=== PATIENT | female | born 1955 | race Caucasian/White ===

== ENCOUNTER 2023-05-21 08:43 | Outpatient (OUT) | payer MEDICARE, SELFPAY ==
--- NOTE | 2023-05-21 08:51 | XR_ITS ---
[address] [address] Patient Name: ALETA CA MRN: [id number] date: 1955 Sex: F Assigned Patient Location: [facility] Current Patient Location: [facility] Accession/Order Number: [id number] Exam Date: 05/21/2023 09:00 Report Date: 05/21/2023 10:50 At the request of: SADIE MURCIA Procedure: XR DEXA axial skeleton EXAMINATION: XR DEXA axial skeleton, 05/21/2023 9:00 AM EST HISTORY: Screening For Osteoporosis Z13.820 COMPARISON: 2017, 2015, 2009 TECHNIQUE: Dual-energy X-ray absorptiometry (DEXA) bone density study performed for the axial skeleton. HISTORY: Screening For Osteoporosis Z13.820 FINDINGS: Bone mineral density AP spine L1-L4 measures 1.258 g/sq cm. T score 0.6. WHO classification: Normal. Lowest bone mineral density is in the right femoral trochanter measuring 0.494 g/sq cm. T score -3.1. WHO classification: Osteoporosis XR/XR DEXA axial skeleton IMPRESSION: Osteoporosis. High fracture risk Electronically authenticated by: JOSSELINE OQUENDO Date: 05/21/2023 10:50
== END 2023-05-21 08:44 | disposition home or self-care (01) ==
LOC: RAD 08:43
PROVIDERS: PCP Family Medicine; Visit Provider Family Medicine
DX: N95.1 Menopausal and female climacteric states (principal); Z13.820 Encounter for screening for osteoporosis; E28.39 Other primary ovarian failure; E55.9 Vitamin D deficiency, unspecified; M81.0 Age-related osteoporosis without current pathological fracture
CPT/HCPCS: 77080

== ENCOUNTER 2023-06-20 11:31 | Outpatient (OUT) | payer MEDICARE, SELFPAY | END 2023-06-20 11:32 | disposition home or self-care (01) | LOC: PST 11:31 | PROVIDERS: PCP Family Medicine; Visit Provider Ophthalmology | DX: Z01.818 Encounter for other preprocedural examination (principal); H25.812 Combined forms of age-related cataract, left eye ==

== ENCOUNTER 2023-06-21 07:31 | Day surgery (SDC) | payer MEDICARE, SELFPAY ==
--- NOTE | 2023-06-20 | HP_ITS ---
Date: 06/20/2023 HISTORY: The patient is a 67-year-old white female with complaints of declining vision out of her left eye. The onset of this has been gradual and constant in nature over the last two years. She states having difficulty with watching television and seeing the scrolling at the bottom of the screen, as well as road signs at a distance. She also states having difficulty on the computer, as well as reading. PAST OCULAR HISTORY: 1. Amblyopia in the left eye. 2. Cataract left eye. 3. Status post cataract extraction with intraocular lens placed for the right eye in 2016. PAST MEDICAL HISTORY: Hypertension, multiple sclerosis. SOCIAL HISTORY: Denies tobacco, alcohol or recreational drug abuse. SYSTEMIC MEDICATIONS: Calciferol, baclofen, Singulair, spironolactone, metoprolol. ALLERGIES TO MEDICATIONS: Denies. REVIEW OF SYSTEMS: No pertinent positives. PHYSICAL EXAM: GENERAL: In general, she is awake, alert and oriented x3, well developed, well nourished, in no acute distress. HEART: Regular rate and rhythm. LUNGS: Clear bilaterally. ABDOMEN: Soft, non-tender, non-distended. EXTREMITIES: No pitting edema. OPHTHALMIC EXAM: Revealed a visual acuity of 20/20 -1 in the right and 20/70 in the left that glared to 20/400. Pupils motility, muscle balance and confrontational visual padilla within normal limits bilaterally. Pressures are measured at 16 bilaterally. Slit lamp exam revealed blepharitis with a severe decrease in tear film bilaterally. Conjunctiva, cornea, anterior chamber and iris were within normal limits bilaterally. Lens status demonstrated well centered posterior chamber intraocular lens of the right eye, and a 2+ nuclear sclerosis with 2+ cortical changes, 2+ ASC and 2+ PSC in the left eye. FUNDUS EXAM: Revealed good view with good dilation bilaterally. Optic discs, vessels, periphery were within normal limits bilaterally. The maculas displayed an epiretinal membrane bilaterally. ASSESSMENT AND PLAN: Visually significant cataract, left eye. After the risks, benefits, and alternatives as well as expectations were delivered to the patient, she elected to go forward with cataract removal. She understands those risks to include but not limited to infection, bleeding, loss of vision or loss of the eye itself. Secondly, she understands that postoperatively she is likely to require spectacle correction for her best visual acuity. Finally, a complete ophthalmic exam was performed and there was not determined to be any other source of vision decline other than that of cataract. She does have a history of amblyopia in the left eye; however, has noticed a subtle decline in vision, felt to be the cataract at this time. After understanding all risks as well as expectations, she elected to go forward with the procedure as listed above and will be doing so in the near future. ARLEN
--- NOTE | 2023-06-21 | OP_ITS ---
OPERATION DATE: 06/21/2023 SURGEON: Germain Velasquez M.D. PREOPERATIVE DIAGNOSIS: Nuclear sclerotic cataract left eye. POSTOPERATIVE DIAGNOSIS: Nuclear sclerotic cataract left eye. PROCEDURE NAME: Cataract extraction with intraocular lens placement for the left eye. ANESTHESIA: Topical. ESTIMATED BLOOD LOSS: Zero. COMPLICATIONS: None. PROCEDURE: Patient brought to the operating room in supine position. After proper identification, the left eye was prepped and draped in a sterile ophthalmic fashion. A paracentesis was created at the 5 o'clock position. Approximately 1 mL of unpreserved Xylocaine was injected into the anterior chamber followed by Amvisc Plus. Using a 2.6 mm Keratome blade, a clear corneal incision was created at the 3 o'clock limbus. A cystotome was then used to begin a curvilinear capsulorrhexis that was continued for 360 degrees with the Utrata forceps. BSS on a 26 gauge cannula was injected beneath the anterior capsule to hydrodissect as well as hydrodelineate the lens. After ensuring mobility, phacoemulsification was performed in a [id number]-type fashion. After all nuclear material had been removed from the eye, IA was introduced and all residual cortical material was cleaned up. Additional Amvisc Plus was injected into the posterior bag and a lens model MX60, 21.0 diopters was then injected and dialed into position. After ensuring centration, IA was reintroduced into the anterior chamber and all residual Amvisc Plus was removed from the eye. BSS on a 30 gauge cannula was injected into the stroma of both the clear corneal incision as well as the paracentesis to hydrate the wounds. Additional BSS was injected into the anterior chamber to pressurize the eye at approximately 20 to 22 mmHg by finger tension. 0.1 mL of antibiotic was injected into the anterior chamber and Weck-Anjelica sponge was used to check the wounds to be watertight. One drop of Apraclonidine and one drop of prednisolone acetate were placed into the eye and a shield was placed over top. The patient was then sent to the postoperative area in satisfactory condition to follow up the following day for postoperative care. ARLEN
[2023-06-21] MEDS: DIAZEPAM 5 MG TABLET PO (07:43)
[2023-06-21] MEDS: TROPICAMIDE 1% OP SOL 300 DROP/15 ML BOTTLE OP ×4 (07:46→08:18)
[2023-06-21] MEDS: BESIFLOXACIN HCL 100 DROP DROPS.SUSP OP ×4 (07:48→08:17)
[2023-06-21] MEDS: CYCLOPENTOLATE HCL 1% OP SOL 40 DROP/2 ML BOTTLE OP ×4 (07:48→08:18)
[2023-06-21] MEDS: PHENYLEPHRINE HCL 2.5% OP SOL 40 DROP/2 ML BOTTLE OP ×4 (07:48→08:18)
[2023-06-21 07:49] VITALS: BP 144/74; PULSE 50; RESP 16; TEMP 35.8; O2SAT 99
[2023-06-21 09:02] VITALS: BP 126/65; PULSE 87; RESP 18; O2SAT 100
[2023-06-21] MEDS: HYALURONATE SODIUM 16 MG/ML SYRINGE EYE-LEFT (09:04)
[2023-06-21] MEDS: APRACLONIDINE HCL 100 DROP/5 ML BOTTLE OP (09:04)
[2023-06-21] MEDS: LIDOCAINE 2% JELLY 10 ML UR (09:04)
[2023-06-21] MEDS: LIDOCAINE HCL 1% PF 20 MG/2 ML VIAL 1 ML INJ (09:05)
[2023-06-21] MEDS: BETADINE POVIDONE-IODINE 5% OP SOL 30 ML BOTTLE OP (09:05)
[2023-06-21] MEDS: PROPARACAINE HCL 0.5% 300 DROP/15 ML BOTTLE OP (09:06)
[2023-06-21] MEDS: PREDNISOLONE ACETATE OP 1% SUSP 100 DROPS/5 ML 1 DROP OP (09:06)
[2023-06-21] MEDS: TETRACAINE HCL 0.5% OP SOL 80 DROP/4 ML BOTTLE OP (09:06)
[2023-06-21] MEDS: CEFUROXIME SODIUM 750 MG, 0.9 % SODIUM CHLORIDE 16.3 ML OP (09:07)
[2023-06-21] MEDS: PHENYLEPHRINE/KETOROLAC 1-0.3% ML VIAL 4 ML IRR (09:07)
[2023-06-21 09:13] VITALS: BP 121/64; PULSE 87; RESP 18; O2SAT 100
== END 2023-06-21 09:25 | disposition home or self-care (01) ==
LOC: SURGOUT 07:31
PROVIDERS: PCP Family Medicine; Visit Provider Ophthalmology
PROC: (CPT 66984; principal; 2023-06-21 09:00)
DX: H25.12 Age-related nuclear cataract, left eye (principal); I10 Essential (primary) hypertension; G35 Multiple sclerosis
CPT/HCPCS: 66984; V2630

== ENCOUNTER 2023-07-30 11:51 | Outpatient (OUT) | payer MEDICARE, SELFPAY ==
[2023-07-30 12:30] LABS: Hematocrit 41.2 % (36.0-48.0); Hemoglobin 13.2 g/dL (12.0-16.0); Mean Corpuscular Hemoglobin 28.3 pg (26.7-34.0); Mean Corpuscular Volume 88.4 fL (81.0-99.0); Mean Platelet Volume 11.7 fL (9.5-13.5); Platelet Count 153 10^3/uL (150-450); Red Blood Count 4.66 10^6/uL (4.20-5.40); Red Cell Distribution Width 15.6 % (11.0-15.0); White Blood Count 3.7 10^3/uL (4.0-11.0)
[2023-07-30 13:11] LABS: Basophils Abs Manual 0.11 10^3/uL (0.00-0.10); Lymphocytes Absolute Manual 0.44 10^3/uL (1.20-3.80); Monocytes Absolute Manual 0.25 10^3/uL (0.30-0.80); Segmented Neut Absolute Manual 2.88 10^3/uL (1.4-6.5)
[2023-07-30 14:21] LABS: Alanine Aminotransferase 31 U/L (14-59); Albumin Level 3.5 g/dL (3.4-5.0); Alkaline Phosphatase 143 U/L (46-116); Anion Gap 11.4; Aspartate Amino Transferase 21 U/L (15-37); BUN Creatinine Ratio 23.5; Bilirubin Direct 0.1 mg/dL (0.0-0.2); Bilirubin Total 0.3 mg/dL (0.2-1.0); Calcium 9.6 mg/dL (8.5-10.1); Carbon Dioxide 33.1 mmol/L (21.0-32.0); Chloride 101 mmol/L (98-107); Estimated GFR (African America >60 (>=60); Estimated GFR (Non-African Ame >60 (>=60); Globulin 3.5 g/dL; Glucose 80 mg/dL (74-106); Potassium 4.5 mmol/L (3.5-5.1); Sodium 141 mmol/L (136-145)
== END 2023-07-30 11:52 | disposition home or self-care (01) ==
LOC: LAB 11:51
PROVIDERS: PCP Family Medicine; Visit Provider Psychiatry & Neurology Neurology
DX: G35 Multiple sclerosis (principal)
CPT/HCPCS: 36415; 80053; 80076; 85027

== ENCOUNTER 2023-09-19 17:33 | Inpatient (IN) | payer MEDICARE, SELFPAY ==
[2023-09-19] VITALS (28 sets, daily range): BP systolic 119–172; BP diastolic 66–111; PULSE 74–133; RESP 10–22; TEMP 36.4; O2SAT 90–98; BMI 25.1; BMI 24.1
--- NOTE | 2023-09-19 17:45 | ECG_ITS ---
[facility] Test Date: 2023-09-19 Pat Name: ALETA CA Department: Room: - Gender: Female [employer]: : 1955 Requested By: SADIE MURCIA Order Number: [id number] Reading MD: MARIE BAUMANN Measurements Intervals [place] Rate: 120 P: -[id number] MN: -26868 QRS: 54 QRSD: 68 T: -15 QT: 284 QTc: 355 Interpretive Statements 28442 Atrial fibrillation with rapid ventricular response ST/T wave changes, can't exclude inferolateral ischemia 8305 Short QTc interval 0102 ARTIFACT PRESENT 9150 abnormal ECG Electronically Signed On 09-19-2023 22:57:32 EST by MARIE BAUMANN
--- NOTE | 2023-09-19 18:06 | ED_ITS ---
Documented by User: MARYSE Moya 09/19/23 19:42 HPI - General Adult General Chief complaint: Urogenital-Female Stated complaint: UTI, Weakness Time Seen by Provider: 09/19/23 17:42 Source: patient Mode of arrival: Wheelchair History of Present Illness HPI narrative: Patient is a 67-year-old female with a history of MS who presents to the emergency department for increasing weakness, double vision and blurry vision Over the last several days. Patient denies any falls or injuries. She denies any significant headache. She was treated last week for shingles with acyclovir which she has now finished for rash along her low back, she states that shingles has improved. She has no pain to the area. She states she has had dark, foul- smelling urine for several days as well. She has no chest pain, shortness of breath. She states she feels overall weak and fatigued. Her daughter at bedside provides a significant portion of the history. She states that the patient was seen at [facility] this morning for an outpatient MRI of the brain that was ordered by her neurologist Dr. Mccall due to her history of MS with regard to the change in her vision. Patient states she has never had the double vision or blurred vision before, the MRI was ordered stat this morning of the brain and showed stable MS lesions with no new abnormalities. Related Data Home Medications Medication Instructions Recorded Confirmed baclofen 20 mg tablet mg 06/18/23 cholecalciferol (vitamin D3) 125 06/18/23 mcg (5,000 unit) tablet gabapentin 100 mg capsule mg 06/18/23 ketorolac 0.5 % eye drops drp ophthalmic (eye) 06/18/23 metoprolol tartrate 25 mg tablet mg 06/18/23 montelukast 10 mg tablet mg 06/18/23 multivitamin with folic acid 400 tab PO 06/18/23 mcg tablet (Daily-Felix (with folic acid)) ofloxacin 0.3 % eye drops drp 06/18/23 prednisolone acetate 1 % eye drp ophthalmic (eye) 06/18/23 drops,suspension spironolactone 25 mg tablet mg 06/18/23 Allergies Allergy/AdvReac Type Severity Reaction Status Date / Time No Known Drug Allergies Allergy Verified 09/19/23 17:45 Review of Systems ROS Constitutional Denies: fever or chills Eyes Reports: change in vision and blurry vision Ears, nose, mouth, and throat Denies: throat pain or nasal congestion Cardiovascular Denies: chest pain Respiratory Denies: shortness of breath or cough Gastrointestinal Denies: abdominal pain, nausea or vomiting Musculoskeletal Denies: back pain or neck pain Integumentary/Breast Reports: rash Neurological Reports: weakness in extremities; Denies: headache, numbness in extremities, dizziness or vertigo PFSH PFSH Medical History (Updated 09/19/23 @ 19:39 by MARYSE Moya) Cataract ?H26.9 - Unspecified cataract (ICD-10) Multiple sclerosis ?G35 - Multiple sclerosis (ICD-10) Neuropathy ?G62.9 - Polyneuropathy, unspecified (ICD-10) Hypertension ?I10 - Essential (primary) hypertension (ICD-10) Surgical History (Updated 06/18/23 @ 10:39 by Fidel Braun) H/O cataract removal with insertion of prosthetic lens ?Z98.49 - Cataract extraction status, unspecified eye (ICD-10) ?Z96.1 - Presence of intraocular lens (ICD-10) History of foot surgery ?Z98.890 - Other specified postprocedural states (ICD-10) Total knee replacement status ?Z96.659 - Presence of unspecified artificial knee joint (ICD-10) History of total hip replacement ?Z96.649 - Presence of unspecified artificial hip joint (ICD-10) Family History (Updated 06/18/23 @ 10:40 by Fidel Braun) Other Family history of CHF (congestive heart failure) Family history of cancer Family history of diabetes mellitus Family history of hypertension Multiple sclerosis S/P triple vessel bypass Social History Within the past year, how often did you have a drink containing alcohol: never Within the past year, how often did you have six or more drinks on one occasion: never Score interpretation: A score less than 3 is consistent with normal alcohol consumption. Smoking status: Former smoker Non-prescribed substance use: denies use Exam Narrative Exam Narrative: Gen.: Awake, alert, in no distress Head: Normocephalic, atraumatic ENT: Moist mucous membranes Respiratory: No respiratory distress, lungs clear bilaterally Cardio: Regular rate and rhythm Gastrointestinal: Abdomen is soft, nondistended and nontender to palpation Extremities: Moves extremities equally Psych: Normal mood and affect Neuro: No focal neuro deficit Skin: Warm, dry, intact Constitutional Vital Signs, click to edit/add: Last Vital Signs Temp 97.5 F L 09/19/23 17:35 Pulse 100 H 09/19/23 17:35 Resp 18 09/19/23 17:35 BP 172/85 H 09/19/23 19:38 Pulse Ox 97 09/19/23 17:35 O2 Del Method Room Air 09/19/23 17:35 Course Vital Signs Vital signs: Vital Signs Temperature 97.5 F L 09/19/23 17:35 Pulse Rate 100 H 09/19/23 17:35 Respiratory Rate 18 09/19/23 17:35 Blood Pressure 147/76 H 09/19/23 17:35 Pulse Oximetry 97 09/19/23 17:35 Oxygen Delivery Method Room Air 09/19/23 17:35 Temperature 97.5 F L 09/19/23 17:35 Pulse Rate 100 H 09/19/23 17:35 Respiratory Rate 18 09/19/23 17:35 Blood Pressure 172/85 H 09/19/23 19:38 Pulse Oximetry 97 09/19/23 17:35 Oxygen Delivery Method Room Air 09/19/23 17:35 Medical Decision Making [facility] Narrative Medical decision making narrative: EG shows artifact but rapid A-fib with patient and family stating that this is new. Patient has not 100% sure but her daughter is very confident she has never had A-fib in the past. Lab studies show hyponatremia, low magnesium, UTI. Patient treated with IV magnesium and Rocephin. IV fluids given. She was given a 5 mg Cardizem IV bolus with some improvement of heart rate. I discussed the case with hospitalist service and we will admit to ICU stepdown for cardiology evaluation for new onset A-fib as well as treatment of UTI and hyponatremia. I obtain the brain MRI results from [facility] as an outpatient this morning. Patient had an MRI of the brain with and without contrast showing merrill-white matter disease appears grossly similar in Distribution to the prior study. No evidence of abnormal enhancement is seen to suggest active demyelination. No acute intracranial process is noted.Chest x-ray obtained and the patient is admitted on a Cardizem drip at 5 mg/h to ICU. Medical Records Medical records reviewed: Yes I reviewed the patient's medical records Lab Data Lab results reviewed: Yes I reviewed the patient's lab results Labs: Lab Results 09/19/23 09/19/23 Range/Units 18:00 18:30 WBC 5.9 (4.0-11.0) 10^3/uL RBC 4.70 (4.20-5.40) 10^6/uL Hgb 13.8 (12.0-16.0) g/dL Hct 40.3 (36.0-48.0) % MCV 85.7 (81.0-99.0) fL MCH 29.4 (26.7-34.0) pg MCHC 34.2 (29.9-35.2) g/dL RDW 14.2 (11.0-15.0) % Plt Count 137 L (150-450) 10^3/uL MPV 11.7 (9.5-13.5) fL Neut % (Auto) 82.0 H (43.0-75.0) % Lymph % (Auto) 8.0 L (20.5-60.0) % Walsh % (Auto) 9.2 (1.7-12.0) % Eos % (Auto) 0.3 L (0.9-7.0) % Baso % (Auto) 0.2 (0.2-2.0) % Neut # (Auto) 4.8 (1.4-6.5) 10^3/uL Lymph # (Auto) 0.5 L (1.2-3.8) 10^3/uL Walsh # (Auto) 0.5 (0.3-0.8) 10^3/uL Eos # (Auto) 0.0 (0.0-0.7) 10^3/uL Baso # (Auto) 0.0 (0.0-0.1) 10^3/uL Abs Immat Gran (auto) 0.02 (0.00-0.03) 10^3/uL Imm/Tot Granulo (auto) 0.3 (0.0-0.5) % PT 11.4 (9.0-11.6) sec INR 1.08 VBG pH 7.433 H (7.330-7.430) VBG pCO2 40.1 (40.0-52.0) mmHg Sodium 120 L* (136-145) mmol/L Potassium 4.3 (3.5-5.1) mmol/L Chloride 90 L (98-107) mmol/L Carbon Dioxide 26.2 (21.0-32.0) mmol/L Anion Gap 8.1 BUN 9.0 (7.0-18.0) mg/dL Creatinine 0.54 L (0.55-1.02) mg/dL Est GFR ( Amer) >60 (>=60) Est GFR (Non-Af Amer) >60 (>=60) BUN/Creatinine Ratio 16.7 Glucose 83 (74-106) mg/dL Lactate 1.3 (0.4-2.0) mmol/L Calcium 9.8 (8.5-10.1) mg/dL Magnesium 1.3 L (1.8-2.4) mg/dL Total Bilirubin 0.5 (0.2-1.0) mg/dL AST 51 H (15-37) U/L ALT 59 (14-59) U/L Alkaline Phosphatase 165 H (46-116) U/L Troponin I High Sens 39.7 (4.0-51.3) pg/mL Total Protein 7.3 (6.4-8.2) g/dL Albumin 3.6 (3.4-5.0) g/dL Globulin 3.7 g/dL Albumin/Globulin Ratio 1.0 TSH 2.129 (0.358-3.740) uIU/mL Urine Color Lt. yellow (YELLOW) Urine Clarity Clear (CLEAR) Urine pH 6.5 (5.0-9.0) Ur Specific [place] 1.020 (1.005-1.025) Urine Protein Negative (NEG/TRACE) mg/dL Urine Glucose (UA) Negative (NEGATIVE) mg/dL Urine Ketones Trace A (NEGATIVE) mg/dL Urine Occult Blood Trace-i (NEGATIVE) Urine Nitrite Positive A (NEGATIVE) Urine Bilirubin Negative (NEGATIVE) Urine Urobilinogen 0.2 (0.2-1.0) EU/dL Ur Leukocyte Esterase Large A (NEGATIVE) Urine RBC 0-2 (0-2) #/HPF Urine WBC 75-100 A (NONE SEEN) #/HPF Ur Squamous Epith Cells Rare (NONE/RARE) #/LPF Urine Crystals None seen (None Seen) #/HPF Urine Bacteria Large A (NONE SEEN) #/HPF Urine Casts None seen (NONE SEEN) #/LPF Urine Mucus Small A (NONE SEEN) Ur Culture Indicated? Yes Adenovirus (PCR) Not detected (NOT DETECTE) C. pneumoniae DNA (PCR) Not detected (NOT DETECTE) Coronavirus Type OC43 Not detected (NOT DETECTE) Coronavirus Type HKU1 Not detected (NOT DETECTE) Coronavirus Type 229E Not detected (NOT DETECTE) Coronavirus Type NL63 Not detected (NOT DETECTE) Human Metapneumovir PCR Not detected (NOT DETECTE) M. pneumoniae (PCR) Not detected (NOT DETECTE) Parainfluenza PCR Not detected (NOT DETECTE) Parainfluenza 2 (PCR) Not detected (NOT DETECTE) Parainfluenza 3 (PCR) Not detected (NOT DETECTE) Parainfluenza 4 (PCR) Not detected (NOT DETECTE) RSV (RT-PCR) Not detected (NOT DETECTE) Entero/Rhino (PCR) Not detected (NOT DETECTE) SARS-CoV-2 (PCR) Not detected (NOT DETECTE) Bordetella pertussis (PCR) Not detected (NOT DETECTE) B parapertussis DNA PCR Not detected (NOT DETECTE) Influenza Type A (PCR) Not detected (NOT DETECTE) Influenza Type B (PCR) Not detected (NOT DETECTE) Imaging Data Chest x-ray: Attestation: I have reviewed the pertinent imaging results. Radiologist's impression: ITS Impressions Chest X-Ray 09/19/23 19:28 IMPRESSION: No apparent acute infiltrate or evidence of cardiac decompensation. Calcified hilar lymph nodes are present. Direct comparison with a previous study would be helpful in confirming the chronicity of these findings. Electronically authenticated by: SAPPHIRE TAYLOR Date: 09/19/2023 20:06 ECG Data Attestation: I personally reviewed and interpreted this ECG as follows: (A-fib with RVR at a rate of 120, artifact noted with no obvious acute ST elevation or ectopy. EKG reviewed by attending physician on arrival.) Discharge Plan Discharge Chief Complaint: Urogenital-Female Clinical Impression: New onset a-fib, Weakness, Acute UTI, Acute hyponatremia Patient Disposition: Admitted As Inpatient Time of Disposition Decision: :39 Condition: Good Documented by User: Jose Chavarria MD 09/19/23 20:10 HPI - General Adult General Chief complaint: Urogenital-Female Stated complaint: UTI, Weakness Time Seen by Provider: 09/19/23 17:42 Related Data Home Medications Medication Instructions Recorded Confirmed baclofen 20 mg tablet mg 06/18/23 cholecalciferol (vitamin D3) 125 06/18/23 mcg (5,000 unit) tablet gabapentin 100 mg capsule mg 06/18/23 ketorolac 0.5 % eye drops drp ophthalmic (eye) 06/18/23 metoprolol tartrate 25 mg tablet mg 06/18/23 montelukast 10 mg tablet mg 06/18/23 multivitamin with folic acid 400 tab PO 06/18/23 mcg tablet (Daily-Felix (with folic acid)) ofloxacin 0.3 % eye drops drp 06/18/23 prednisolone acetate 1 % eye drp ophthalmic (eye) 06/18/23 drops,suspension spironolactone 25 mg tablet mg 06/18/23 Allergies Allergy/AdvReac Type Severity Reaction Status Date / Time No Known Drug Allergies Allergy Verified 09/19/23 17:45 [facility] Medical History (Updated 09/19/23 @ 19:39 by MARYSE Moya) Cataract ?H26.9 - Unspecified cataract (ICD-10) Multiple sclerosis ?G35 - Multiple sclerosis (ICD-10) Neuropathy ?G62.9 - Polyneuropathy, unspecified (ICD-10) Hypertension ?I10 - Essential (primary) hypertension (ICD-10) Surgical History (Updated 06/18/23 @ 10:39 by Fidel Braun) H/O cataract removal with insertion of prosthetic lens ?Z98.49 - Cataract extraction status, unspecified eye (ICD-10) ?Z96.1 - Presence of intraocular lens (ICD-10) History of foot surgery ?Z98.890 - Other specified postprocedural states (ICD-10) Total knee replacement status ?Z96.659 - Presence of unspecified artificial knee joint (ICD-10) History of total hip replacement ?Z96.649 - Presence of unspecified artificial hip joint (ICD-10) Family History (Updated 06/18/23 @ 10:40 by Fidel Braun) Other Family history of CHF (congestive heart failure) Family history of cancer Family history of diabetes mellitus Family history of hypertension Multiple sclerosis S/P triple vessel bypass Social History Within the past year, how often did you have a drink containing alcohol: never Within the past year, how often did you have six or more drinks on one occasion: never Score interpretation: A score less than 3 is consistent with normal alcohol consumption. Smoking status: Former smoker Non-prescribed substance use: denies use Exam Constitutional Vital Signs, click to edit/add: Last Vital Signs Temp 97.5 F L 09/19/23 17:35 Pulse 100 H 09/19/23 17:35 Resp 18 09/19/23 17:35 BP 172/85 H 09/19/23 19:38 Pulse Ox 97 09/19/23 17:35 O2 Del Method Room Air 09/19/23 17:35 Course Vital Signs Vital signs: Vital Signs Temperature 97.5 F L 09/19/23 17:35 Pulse Rate 100 H 09/19/23 17:35 Respiratory Rate 18 09/19/23 17:35 Blood Pressure 147/76 H 09/19/23 17:35 Pulse Oximetry 97 09/19/23 17:35 Oxygen Delivery Method Room Air 09/19/23 17:35 Temperature 97.5 F L 09/19/23 17:35 Pulse Rate 100 H 09/19/23 17:35 Respiratory Rate 18 09/19/23 17:35 Blood Pressure 172/85 H 09/19/23 19:38 Pulse Oximetry 97 09/19/23 17:35 Oxygen Delivery Method Room Air 09/19/23 17:35 Medical Decision Making MDM Narrative Medical decision making narrative: EG shows artifact but rapid A-fib with patient and family stating that this is new. Patient has not 100% sure but her daughter is very confident she has never had A-fib in the past. Lab studies show hyponatremia, low magnesium, UTI. Patient treated with IV magnesium and Rocephin. IV fluids given. She was given a 5 mg Cardizem IV bolus with some improvement of heart rate. I discussed the case with hospitalist service and we will admit to ICU stepdown for cardiology evaluation for new onset A-fib as well as treatment of UTI and hyponatremia. I obtain the brain MRI results from [facility] as an outpatient this morning. Patient had an MRI of the brain with and without contrast showing merrill-white matter disease appears grossly similar in Distribution to the prior study. No evidence of abnormal enhancement is seen to suggest active demyelination. No acute intracranial process is noted.Chest x-ray obtained and the patient is admitted on a Cardizem drip at 5 mg/h to ICU. I, Dr Chavarria, have reviewed the above progress note and course of action in the ER; agree with the above. I have personally seen and evaluated this patient, gone over history and physical, and discussed disposition and treatment plan with the patient. Critical care time 35 minutes exclusive from separate billable procedures that were performed. The following was considered in the determination of critical care but not limited to the level of medical decision making, intensive cardiac and/or respiratory monitoring, frequent vital sign monitoring, evaluation of laboratory studies, evaluation of radiographic studies, oxygen monitoring, and constant monitoring and speaking to family at bedside Lab Data Labs: Lab Results 09/19/23 09/19/23 Range/Units 18:00 18:30 WBC 5.9 (4.0-11.0) 10^3/uL RBC 4.70 (4.20-5.40) 10^6/uL Hgb 13.8 (12.0-16.0) g/dL Hct 40.3 (36.0-48.0) % MCV 85.7 (81.0-99.0) fL MCH 29.4 (26.7-34.0) pg MCHC 34.2 (29.9-35.2) g/dL RDW 14.2 (11.0-15.0) % Plt Count 137 L (150-450) 10^3/uL MPV 11.7 (9.5-13.5) fL Neut % (Auto) 82.0 H (43.0-75.0) % Lymph % (Auto) 8.0 L (20.5-60.0) % Walsh % (Auto) 9.2 (1.7-12.0) % Eos % (Auto) 0.3 L (0.9-7.0) % Baso % (Auto) 0.2 (0.2-2.0) % Neut # (Auto) 4.8 (1.4-6.5) 10^3/uL Lymph # (Auto) 0.5 L (1.2-3.8) 10^3/uL Walsh # (Auto) 0.5 (0.3-0.8) 10^3/uL Eos # (Auto) 0.0 (0.0-0.7) 10^3/uL Baso # (Auto) 0.0 (0.0-0.1) 10^3/uL Abs Immat Gran (auto) 0.02 (0.00-0.03) 10^3/uL Imm/Tot Granulo (auto) 0.3 (0.0-0.5) % PT 11.4 (9.0-11.6) sec INR 1.08 VBG pH 7.433 H (7.330-7.430) VBG pCO2 40.1 (40.0-52.0) mmHg Sodium 120 L* (136-145) mmol/L Potassium 4.3 (3.5-5.1) mmol/L Chloride 90 L (98-107) mmol/L Carbon Dioxide 26.2 (21.0-32.0) mmol/L Anion Gap 8.1 BUN 9.0 (7.0-18.0) mg/dL Creatinine 0.54 L (0.55-1.02) mg/dL Est GFR ( Amer) >60 (>=60) Est GFR (Non-Af Amer) >60 (>=60) BUN/Creatinine Ratio 16.7 Glucose 83 (74-106) mg/dL Lactate 1.3 (0.4-2.0) mmol/L Calcium 9.8 (8.5-10.1) mg/dL Magnesium 1.3 L (1.8-2.4) mg/dL Total Bilirubin 0.5 (0.2-1.0) mg/dL AST 51 H (15-37) U/L ALT 59 (14-59) U/L Alkaline Phosphatase 165 H (46-116) U/L Troponin I High Sens 39.7 (4.0-51.3) pg/mL Total Protein 7.3 (6.4-8.2) g/dL Albumin 3.6 (3.4-5.0) g/dL Globulin 3.7 g/dL Albumin/Globulin Ratio 1.0 TSH 2.129 (0.358-3.740) uIU/mL Urine Color Lt. yellow (YELLOW) Urine Clarity Clear (CLEAR) Urine pH 6.5 (5.0-9.0) Ur Specific [place] 1.020 (1.005-1.025) Urine Protein Negative (NEG/TRACE) mg/dL Urine Glucose (UA) Negative (NEGATIVE) mg/dL Urine Ketones Trace A (NEGATIVE) mg/dL Urine Occult Blood Trace-i (NEGATIVE) Urine Nitrite Positive A (NEGATIVE) Urine Bilirubin Negative (NEGATIVE) Urine Urobilinogen 0.2 (0.2-1.0) EU/dL Ur Leukocyte Esterase Large A (NEGATIVE) Urine RBC 0-2 (0-2) #/HPF Urine WBC 75-100 A (NONE SEEN) #/HPF Ur Squamous Epith Cells Rare (NONE/RARE) #/LPF Urine Crystals None seen (None Seen) #/HPF Urine Bacteria Large A (NONE SEEN) #/HPF Urine Casts None seen (NONE SEEN) #/LPF Urine Mucus Small A (NONE SEEN) Ur Culture Indicated? Yes Adenovirus (PCR) Not detected (NOT DETECTE) C. pneumoniae DNA (PCR) Not detected (NOT DETECTE) Coronavirus Type OC43 Not detected (NOT DETECTE) Coronavirus Type HKU1 Not detected (NOT DETECTE) Coronavirus Type 229E Not detected (NOT DETECTE) Coronavirus Type NL63 Not detected (NOT DETECTE) Human Metapneumovir PCR Not detected (NOT DETECTE) M. pneumoniae (PCR) Not detected (NOT DETECTE) Parainfluenza PCR Not detected (NOT DETECTE) Parainfluenza 2 (PCR) Not detected (NOT DETECTE) Parainfluenza 3 (PCR) Not detected (NOT DETECTE) Parainfluenza 4 (PCR) Not detected (NOT DETECTE) RSV (RT-PCR) Not detected (NOT DETECTE) Entero/Rhino (PCR) Not detected (NOT DETECTE) SARS-CoV-2 (PCR) Not detected (NOT DETECTE) Bordetella pertussis (PCR) Not detected (NOT DETECTE) B parapertussis DNA PCR Not detected (NOT DETECTE) Influenza Type A (PCR) Not detected (NOT DETECTE) Influenza Type B (PCR) Not detected (NOT DETECTE) Imaging Data Chest x-ray: Radiologist's impression: ITS Impressions Chest X-Ray 09/19/23 19:28 IMPRESSION: No apparent acute infiltrate or evidence of cardiac decompensation. Calcified hilar lymph nodes are present. Direct comparison with a previous study would be helpful in confirming the chronicity of these findings. Electronically authenticated by: SAPPHIRE TAYLOR Date: 09/19/2023 20:06 Discharge Plan Discharge Chief Complaint: Urogenital-Female Clinical Impression: New onset a-fib, Weakness, Acute UTI, Acute hyponatremia Patient Disposition: Admitted As Inpatient Time of Disposition Decision: 19:39 Condition: Good
[2023-09-19 18:11] LABS: Adenovirus NOT DETECTED (NOT DETECTE); Bordetella parapertussis NOT DETECTED (NOT DETECTE); Coronavirus 229E NOT DETECTED (NOT DETECTE); Coronavirus HKU1 NOT DETECTED (NOT DETECTE); Coronavirus NL63 NOT DETECTED (NOT DETECTE); Coronavirus OC43 NOT DETECTED (NOT DETECTE); Human Metapneumovirus NOT DETECTED (NOT DETECTE); Human Rhinovirus/Enterovirus NOT DETECTED (NOT DETECTE); Influenza A NOT DETECTED (NOT DETECTE); Influenza B NOT DETECTED (NOT DETECTE); Mycoplasma pneumoniae NOT DETECTED (NOT DETECTE); Parainfluenza Virus 1 NOT DETECTED (NOT DETECTE); Parainfluenza Virus 2 NOT DETECTED (NOT DETECTE); Parainfluenza Virus 3 NOT DETECTED (NOT DETECTE); Parainfluenza Virus 4 NOT DETECTED (NOT DETECTE); Respiratory Syncytial Virus NOT DETECTED (NOT DETECTE); SARS-CoV-2 NOT DETECTED (NOT DETECTE)
[2023-09-19 18:12] LABS: PCO2 VBG 40.1 mmHg (40.0-52.0); pH VBG 7.433 (7.330-7.430)
[2023-09-19] MEDS: 0.9 % SODIUM CHLORIDE 1,000 ML 999 ML IV (18:12)
[2023-09-19 18:15] LABS: Basophils Percent Auto 0.2 % (0.2-2.0); Eosinophils Percent Auto 0.3 % (0.9-7.0); Hematocrit 40.3 % (36.0-48.0); Hemoglobin 13.8 g/dL (12.0-16.0); Immature Granulocytes Abs Auto 0.02 10^3/uL (0.00-0.03); Immature Granulocytes Pct Auto 0.3 % (0.0-0.5); Lymphocytes Absolute Auto 0.5 10^3/uL (1.2-3.8); Mean Corpuscular HGB Conc 34.2 g/dL (29.9-35.2); Mean Corpuscular Hemoglobin 29.4 pg (26.7-34.0); Mean Corpuscular Volume 85.7 fL (81.0-99.0); Mean Platelet Volume 11.7 fL (9.5-13.5); Monocytes Absolute Auto 0.5 10^3/uL (0.3-0.8); Monocytes Percent Auto 9.2 % (1.7-12.0); Neutrophils Absolute Auto 4.8 10^3/uL (1.4-6.5); Platelet Count 137 10^3/uL (150-450); Red Cell Distribution Width 14.2 % (11.0-15.0); White Blood Count 5.9 10^3/uL (4.0-11.0)
[2023-09-19 18:25] LABS: INR 1.08; Prothrombin Time 11.4 sec (9.0-11.6)
[2023-09-19 18:35] LABS: Lactate/Lactic Acid 1.3 mmol/L (0.4-2.0)
[2023-09-19 18:41] LABS: Alanine Aminotransferase 59 U/L (14-59); Albumin Level 3.6 g/dL (3.4-5.0); Alkaline Phosphatase 165 U/L (46-116); Anion Gap 8.1; Aspartate Amino Transferase 51 U/L (15-37); BUN Creatinine Ratio 16.7; Bilirubin Total 0.5 mg/dL (0.2-1.0); Calcium 9.8 mg/dL (8.5-10.1); Carbon Dioxide 26.2 mmol/L (21.0-32.0); Chloride 90 mmol/L (98-107); Estimated GFR (African America >60 (>=60); Estimated GFR (Non-African Ame >60 (>=60); Globulin 3.7 g/dL; Glucose 83 mg/dL (74-106); Magnesium 1.3 mg/dL (1.8-2.4); Potassium 4.3 mmol/L (3.5-5.1); Thyroid Stimulating Hormone 2.129 uIU/mL (0.358-3.740); Total Protein 7.3 g/dL (6.4-8.2); Troponin I High Sensitivity 39.7 pg/mL (4.0-51.3)
[2023-09-19 18:46] LABS: Bilirubin Urine NEGATIVE (NEGATIVE); Blood Urine TRACE-I (NEGATIVE); Clarity Urine CLEAR (CLEAR); Color Urine LT. YELLOW (YELLOW); Glucose Urine UA NEGATIVE (NEGATIVE); Ketones Urine TRACE mg/dL (NEGATIVE); Leukocyte Esterase Urine LARGE (NEGATIVE); Nitrite Urine POSITIVE (NEGATIVE); Protein Urine NEGATIVE (NEG/TRACE); Urobilinogen Urine 0.2 EU/dL (0.2-1.0); pH Urine 6.5 (5.0-9.0)
[2023-09-19 18:50] LABS: Sodium 120 mmol/L (136-145)
[2023-09-19 18:51] LABS: Urine Microscopic Indicated YES
[2023-09-19 18:54] LABS: Bacteria Urine LARGE #/HPF (NONE SEEN); Mucus Urine SMALL (NONE SEEN); RBC Urine 0-2 #/HPF (0-2); Squamous Epithelial Cell Urine RARE #/LPF (NONE/RARE); WBC Urine 75-100 #/HPF (NONE SEEN)
[2023-09-19 18:55] LABS: Cast Seen? NONE SEEN #/LPF (NONE SEEN); Crystals Seen? None Seen #/HPF (None Seen); Urine Culture Indicated YES
[2023-09-19] MEDS: ENOXAPARIN SODIUM 80 MG/0.8 ML SYRINGE 75 MG SUBQ (19:08)
--- NOTE | 2023-09-19 19:28 | XR_ITS ---
The [address] [address] Patient Name: ALETA CA MRN: [id number] date: 1955 Sex: F Assigned Patient Location: ER Current Patient Location: ER Accession/Order Number: [id number] Exam Date: 09/19/2023 19:47 Report Date: 09/19/2023 20:06 At the request of: NARAYAN REA Procedure: XR chest 1V EXAM: XR chest 1V HISTORY: new onset afib COMPARISON: None. TECHNIQUE: AP upright portable chest x-ray FINDINGS: The heart is not enlarged and the vasculature is not distended. Elevation of the left hemidiaphragm is noted. No acute infiltrate, effusion or pneumothorax is identified. Calcified perihilar lymph nodes are noted bilaterally. The spine is grossly intact. A left shoulder prosthesis is in place. XR/XR chest 1V IMPRESSION: No apparent acute infiltrate or evidence of cardiac decompensation. Calcified hilar lymph nodes are present. Direct comparison with a previous study would be helpful in confirming the chronicity of these findings. Electronically authenticated by: SAPPHIRE TAYLOR Date: 09/19/2023 20:06
[2023-09-19] MEDS: DILTIAZEM HCL 25 MG/5 ML VIAL 5 MG IV (19:38)
[2023-09-19] MEDS: CEFTRIAXONE 1,000 MG in 0.9 % SODIUM CHLORIDE 50 ML 100 MG IV (19:39)
[2023-09-19] MEDS: MAGNESIUM SULFATE IN WATER 2 GM/50 ML PREMIX IV (19:42)
[2023-09-19] MEDS: dilTIAZem HCL 125 MG in 0.9 % SODIUM CHLORIDE 100 ML IV (20:37)
--- NOTE | 2023-09-19 20:49 | PC.NURSE ---
report called to Simona ESPINOSA on ICU. Pt up to unit on monitor, 3LNC, and diltiazem drip at 10mg/hr. VSS with e/u respirations at 3L NC. Pt did develop some crackles after fluid bolus, RN notified.
[2023-09-19] MEDS: 0.9 % SODIUM CHLORIDE 1,000 ML 100 ML IV (22:27)
--- NOTE | 2023-09-19 23:10 | ECG_ITS ---
[facility] Test Date: 2023-09-19 Pat Name: ALETA CA Department: Room: [facility] Gender: Female Sales Coach: : 1955 Requested By: SADIE MURCIA Order Number: [id number] Reading MD: WARNER TRIVEDI Measurements Intervals [place] Rate: 77 P: 71 FL: 208 QRS: 49 QRSD: 76 T: 26 QT: 356 QTc: 387 Interpretive Statements 1100 Sinus rhythm Non-Specific T wave inversion in III 9110 normal ECG Compared to ECG 09/19/2023 18:07:45 Atrial fibrillation no longer present Possible ischemia no longer present Electronically Signed On 09-20-2023 6:07:29 EST by WARNER TRIVEDI
[2023-09-20] VITALS (43 sets, daily range): BP systolic 131–146; BP diastolic 69–76; PULSE 71–117; RESP 11–26; TEMP 36.3–36.6; O2SAT 96–98
[2023-09-20 05:05] LABS: Basophils Percent Auto 0.2 % (0.2-2.0); Eosinophils Percent Auto 0.4 % (0.9-7.0); Hematocrit 40.7 % (36.0-48.0); Hemoglobin 13.6 g/dL (12.0-16.0); Immature Granulocytes Abs Auto 0.01 10^3/uL (0.00-0.03); Immature Granulocytes Pct Auto 0.2 % (0.0-0.5); Lymphocytes Absolute Auto 0.6 10^3/uL (1.2-3.8); Lymphocytes Percent Auto 11.9 % (20.5-60.0); Mean Corpuscular HGB Conc 33.4 g/dL (29.9-35.2); Mean Corpuscular Hemoglobin 29.1 pg (26.7-34.0); Monocytes Absolute Auto 0.5 10^3/uL (0.3-0.8); Monocytes Percent Auto 11.5 % (1.7-12.0); Neutrophils Absolute Auto 3.6 10^3/uL (1.4-6.5); Neutrophils Percent Auto 75.8 % (43.0-75.0); Platelet Count 130 10^3/uL (150-450); Red Blood Count 4.68 10^6/uL (4.20-5.40); Red Cell Distribution Width 14.6 % (11.0-15.0); White Blood Count 4.7 10^3/uL (4.0-11.0)
[2023-09-20 05:38] LABS: Alanine Aminotransferase 55 U/L (14-59); Albumin Globulin Ratio 0.9; Albumin Level 3.3 g/dL (3.4-5.0); Alkaline Phosphatase 151 U/L (46-116); Anion Gap 14.5; Aspartate Amino Transferase 50 U/L (15-37); BUN Creatinine Ratio 17.4; Bilirubin Total 0.5 mg/dL (0.2-1.0); Calcium 9.5 mg/dL (8.5-10.1); Carbon Dioxide 22.7 mmol/L (21.0-32.0); Chloride 97 mmol/L (98-107); Estimated GFR (African America >60 (>=60); Estimated GFR (Non-African Ame >60 (>=60); Globulin 3.5 g/dL; Glucose 51 mg/dL (74-106); Potassium 4.2 mmol/L (3.5-5.1); Sodium 130 mmol/L (136-145); Total Protein 6.8 g/dL (6.4-8.2)
--- NOTE | 2023-09-20 06:32 | CA_ITS ---
Patient Name: ALETA CA MR#: [id number] : 1955 Exam Date: 09/20/2023 Ordering Doctor: DR Alex Diamond . ECHOCARDIOGRAM REPORT PROCEDURE: CA ECHO DOPPLER COMPLETE INDICATIONS: a-fib COMPARISON: None. DESCRIPTION: COMPLETE ECHOCARDIOGRAM Real-time transthoracic echocardiography with 2D, M-mode, spectral and color flow Doppler performed. QUALITY: Technical quality was adequate. LEFT VENTRICLE: Normal chamber size. Normal left ventricular wall thickness. LV EF: Global left ventricular systolic function is normal. Visual estimation of left ventricular ejection fraction is 55%. DIASTOLIC: Unable to assess diastolic function. ATRIAL SEPTUM: Inadequately seen. LEFT ATRIUM: Normal chamber size. RIGHT ATRIUM: Normal chamber size. RIGHT VENTRICLE: Normal chamber size. Normal right ventricular systolic function. TRICUSPID VALVE: Normal mobility and thickness. No stenosis with trivial regurgitation. Unable to assess right-sided pressures due to lack of measurable tricuspid regurgitation. MITRAL VALVE: Normal mobility and thickness. No evidence of mitral valve stenosis. There is no mitral annular calcification. Mild to moderate mitral regurgitation. AORTIC VALVE: Grossly normal. Normal leaflet mobility. No evidence of aortic valve stenosis. No aortic regurgitation. AORTIC ROOT: Normal diameter and appearance. PULMONIC VALVE: Grossly normal. No regurgitation. PERICARDIUM: Anterior free space; trivial effusion versus fat pad. IVC: Collapses with inspirations. Normal size. CONCLUSION: 1. Global left ventricular systolic function is normal; visually estimated ejection fraction is 55 to 60% 2. Normal right ventricular size and systolic function 3. Normal left atrial size 4. Unable to assess diastolic function 5. Mild to moderate mitral regurgitation 6. Anterior free space; trivial effusion versus fat pad Adult Echocardiography Procedure Report Left Ventricle LVEDD (3.7 - 5.6 cm): 4.14 cm LVESD (2.2 - 4.0 cm): 2.61 cm LVIVS thickness (0.6 - 1.2 cm): 0.70 cm LVPW thickness (0.5 - 1.0 cm): 0.70 cm e': 0.07 m/s E - e': 10.90 LVOT Max Gradient: 3.54 mm[Hg] LVOT Area (cm2): 0.94 m/s Peak Velocity (LVOT): 0.94 m/s Mean Velocity (LVOT): 0.58 m/s LVOT Diameter 1.84 cm Left Ventricular Ejection Fraction: 60.17 % Left Atrium LA Volume Index (2D A2C): 27.88 ml/m2 Left Atrium Systolic Dimension: 2.84 cm Mitral Valve MV E to A Ratio: 0.74, 0.78 Mitral Valve A-Wave Peak Velocity: 0.99 m/s Mitral Valve E-Wave Peak Velocity: 0.75 m/s Right Ventricle RV Internal Diastolic Dimension: 3.37 cm Aorta AO Root Diam: 2.77 cm Aortic Valve AoV Area (Peak Anant): 2.22 cm2, 2.22 cm2 AoV Area (VTI): 2.00 cm2, 2.00 cm2 Peak Velocity(Antegrade Flow): 1.12 m/s Peak Gradient(Antegrade Flow): 5.05 mm[Hg] Mean Velocity(Antegrade Flow): 0.78 m/s Mean Gradient(Antegrade Flow): 2.73 mm[Hg] Velocity Time Integral: 26.40 cm Tricuspid Valve Peak Velocity (Regurgitant Flow): 1.96 m/s Pulmonic Valve Peak Velocity: 0.74 m/s Peak Gradient: 2.21 mm[Hg] Right Atrium Right Atrium Systolic Pressure: 32.68 ml, 32.68 ml Dictated by: Ten Moyer M.D. on 09/20/2023 at 14:14 Approved by: Ten Moyer M.D. on 09/20/2023 at 14:20
[2023-09-20 06:54] LABS: Sodium Urine Random 83 mmol/L (30-90)
[2023-09-20 06:56] LABS: Magnesium 1.7 mg/dL (1.8-2.4); Troponin I High Sensitivity 41.6 pg/mL (4.0-51.3)
[2023-09-20] MEDS: 0.9 % SODIUM CHLORIDE 1,000 ML 100 ML IV (07:44)
[2023-09-20] MEDS: GABAPENTIN 100 MG CAPSULE PO ×2 (07:45→13:16)
[2023-09-20] MEDS: BACLOFEN 10 MG TABLET PO ×2 (07:45→13:16)
[2023-09-20 07:58] LABS: Glucometer 53 mg/dL (74-106)
--- NOTE | 2023-09-20 08:15 | P.HP_ITS ---
HPI H&P: HPI History of Present Illness Chief complaint: UTI, Weakness AFIB Hyponatremia Narrative: Patient had an outpatient MRI scan for follow-up of her MS. The report we were told was showed no new active lesions. Patient still not feeling well so presented to the emergency room. In the emergency room she was found to have atrial fibrillation with rapid ventricular response. She has no history of atrial fibrillation in the past. She has had intermittent episodes of this weak ness but felt to be related to the multiple sclerosis. Also in the ER found to have acute UTI. Significant hyponatremia. Patient was placed on Cardizem drip. Heart rate improved on the Cardizem drip and overnight she converted back into normal sinus rhythm. When I saw the patient up in the intensive care unit, she says she feels much better. She still seems very weak to me but with her MS I am not certain of her baseline. Opioid HPI Opioid Management Most Recent Opioid Data: Last Pain Assessment 09/20/23 07:59 [facility] Medical History DDD (degenerative disc disease), lumbar ?M51.36 - Other intervertebral disc degeneration, lumbar region (ICD-10) DDD (degenerative disc disease), cervical ?M50.30 - Other cervical disc degeneration, unspecified cervical region (ICD- 10) Cataract ?H26.9 - Unspecified cataract (ICD-10) Multiple sclerosis ?G35 - Multiple sclerosis (ICD-10) Neuropathy ?G62.9 - Polyneuropathy, unspecified (ICD-10) Hypertension ?I10 - Essential (primary) hypertension (ICD-10) Surgical History (Updated 09/19/23 @ 21:30 by Simona Perez) History of left shoulder replacement ?Z96.612 - Presence of left artificial shoulder joint (ICD-10) H/O cataract removal with insertion of prosthetic lens ?Z98.49 - Cataract extraction status, unspecified eye (ICD-10) ?Z96.1 - Presence of intraocular lens (ICD-10) History of foot surgery ?Z98.890 - Other specified postprocedural states (ICD-10) History of total hip replacement ?Z96.649 - Presence of unspecified artificial hip joint (ICD-10) Family History (Updated 06/18/23 @ 10:40 by Fidel Braun) Other Family history of CHF (congestive heart failure) Family history of cancer Family history of diabetes mellitus Family history of hypertension Multiple sclerosis S/P triple vessel bypass Social History Within the past year, how often did you have a drink containing alcohol: never Within the past year, how often did you have six or more drinks on one occasion: never Score interpretation: A score less than 3 is consistent with normal alcohol consumption. Smoking status: Former smoker Non-prescribed substance use: denies use Highest level of school completed/degree received: some college, no degree Gender Identity: female Meds Home Medications and Allergies Home Medications Medication Instructions Recorded Confirmed Type baclofen 20 mg tablet 10 mg PO TID 06/18/23 09/19/23 History cholecalciferol (vitamin D3) 125 10,000 unit PO DAILY 06/18/23 09/19/23 History mcg (5,000 unit) tablet gabapentin 100 mg capsule 100 mg PO TID 06/18/23 09/19/23 History metoprolol tartrate 25 mg tablet 25 mg PO BID 06/18/23 09/19/23 History montelukast 10 mg tablet 10 mg PO .hs 06/18/23 09/19/23 History multivitamin with folic acid 400 1 tab PO DAILY 06/18/23 09/19/23 History mcg tablet (Daily-Felix (with folic acid)) spironolactone 25 mg tablet 25 mg PO .am 06/18/23 09/19/23 History vitamins A,C,A-kaig-tqnrwe 2,148 1 tab PO BID 09/19/23 09/19/23 History mcg-113 mg-45 mg-17.4 mg tablet (Eye Multivitamin) Allergies Allergy/AdvReac Type Severity Reaction Status Date / Time No Known Drug Allergies Allergy Verified 09/19/23 17:45 Exam Constitutional Vital Signs, click to edit/add: Last Vital Signs Temp 97.5 F L 09/20/23 02:19 Pulse 109 H 09/20/23 07:59 Resp 14 09/20/23 07:59 BP 131/74 09/20/23 02:19 Pulse Ox 97 09/20/23 07:59 O2 Del Method Room Air 09/20/23 02:19 O2 Flow Rate 3 09/19/23 21:02 Documenting provider has reviewed patient's vital signs: yes Common normals: no apparent distress Chest Common normals: inspection of chest normal and palpation of chest normal Respiratory Common normals: normal respiratory effort and no retractions Cardio Common normals: regular rate and regular rhythm GI Common normals: Normal to inspection, nondistended, normoactive bowel sounds present Extremity Common normals: normal to inspection (Weakness in bilateral lower extremities) and full ROM General: edema (1+ which is chronic for her) Results Labs Labs: Short CBC 09/19/23 09/20/23 Range/Units 18:00 03:55 WBC 5.9 4.7 (4.0-11.0) 10^3/uL Hgb 13.8 13.6 (12.0-16.0) g/dL Hct 40.3 40.7 (36.0-48.0) % Plt Count 137 L 130 L (150-450) 10^3/uL BMP 09/19/23 09/20/23 18:00 03:55 Sodium 120 L* 130 L Potassium 4.3 4.2 Chloride 90 L 97 L Carbon Dioxide 26.2 22.7 BUN 9.0 8.0 Creatinine 0.54 L 0.46 L Glucose 83 51 L Calcium 9.8 9.5 Liver Function 09/19/23 09/20/23 Range/Units 18:00 03:55 Total Bilirubin 0.5 0.5 (0.2-1.0) mg/dL AST 51 H 50 H (15-37) U/L ALT 59 55 (14-59) U/L Alkaline Phosphatase 165 H 151 H (46-116) U/L Albumin 3.6 3.3 L (3.4-5.0) g/dL Urine 09/19/23 Range/Units 18:30 Urine Color Lt. yellow (YELLOW) Urine Clarity Clear (CLEAR) Urine pH 6.5 (5.0-9.0) Ur Specific [place] 1.020 (1.005-1.025) Urine Protein Negative (NEG/TRACE) mg/dL Urine Glucose (UA) Negative (NEGATIVE) mg/dL ABG ABG results: 09/19/23 18:00 VBG pH 7.433 H VBG pCO2 40.1 Assessment and Plan Assessment and Plan (1) Acute hyponatremia: (2) New onset a-fib: Plan Tachycardia secondary to atrial fibrillation with rapid ventricular response-no known history, patient has converted back into normal sinus rhythm, she has been weaned off of the Cardizem drip, heart rate is up a little bit we bumped up her metoprolol to 50 mg twice a day. Check on thyroid, magnesium, urine culture, echocardiogram. If patient maintains normal sinus rhythm and is ambulating safely after lunch and evaluation by cardiology possible discharge to home in improving condition. Acute UTI-IV antibiotics, will use 2 to start with, likely discharged home on 1 Thrombocytopenia-this appears to be chronic will follow up as an outpatient Severe hyponatremia-she has a high urine sodium but this may be related to the spironolactone. Sodium improved today. Hypomagnesemia-improved, add oral supplementation Borderline elevated liver function test-this may be baseline of her MS-stable today Edema-chronic for her-1+, that is about her baseline. Patient placed in inpatient status with IV Cardizem drip and suspected in patient status for further cardiac evaluation, patient did convert to normal sinus rhythm quickly, her recovery is happening more rapidly than expected. She is a possible discharge to home later today. Was anticipating her medically necessary treatment would definitely span 2 midnights but with the rapid improvement, possible discharge later today
[2023-09-20] MEDS: METOPROLOL TARTRATE 25 MG TABLET 50 MG PO (08:21)
[2023-09-20] MEDS: CIPROFLOXACIN IN 5 % DEXTROSE 400 MG/200 ML PIGGYBACK 200 MG IV (08:21)
[2023-09-20] MEDS: CHOLECALCIFEROL (VITAMIN D3) 125 MCG/5,000 UNIT TABLET 250 MCG PO (08:21)
[2023-09-20] MEDS: MULTIVITAMIN TABLET 1 TAB PO (08:21)
[2023-09-20] MEDS: VITS A,C,E/LUTEIN/MINERALS 1 TABLET 1 TAB PO (08:21)
--- NOTE | 2023-09-20 09:09 | P.DS_ITS ---
DS: Providers Provider Date of admission: 09/19/23 20:55 Primary care physician: SADIE MURCIA Consults: 09/20/23 06:00 Consult to Cardiology Routine Reason for consultation: New onset a-fib w/rvr Has provider been notified: No 09/20/23 08:11 Physical Therapy Eval and Treat Routine Reason for consultation: MS Has provider been notified: No DS: Diagnosis Discharge Diagnosis (1) Acute hyponatremia: (2) New onset a-fib: Plan Tachycardia secondary to atrial fibrillation with rapid ventricular response-no known history, patient has converted back into normal sinus rhythm, she has been weaned off of the Cardizem drip, heart rate is up a little bit we bumped up her metoprolol to 50 mg twice a day. Check on thyroid, magnesium, urine culture, echocardiogram. If patient maintains normal sinus rhythm and is ambulating safely after lunch and evaluation by cardiology possible discharge to home in improving condition. Acute UTI-IV antibiotics, will use 2 to start with, likely discharged home on 1 Thrombocytopenia-this appears to be chronic will follow up as an outpatient Severe hyponatremia-she has a high urine sodium but this may be related to the spironolactone. Sodium improved today. Hypomagnesemia-improved, add oral supplementation Borderline elevated liver function test-this may be baseline of her MS-stable today Edema-chronic for her-1+, that is about her baseline. Patient placed in inpatient status with IV Cardizem drip and suspected in patient status for further cardiac evaluation, patient did convert to normal sinus rhythm quickly, her recovery is happening more rapidly than expected. She is a possible discharge to home later today. Was anticipating her medically necessary treatment would definitely span 2 midnights but with the rapid improvement, possible discharge later today ? DS: Summary Hospital Course Hospital Course: Patient is seen and evaluated in the emergency room secondary to increasing weakness. She felt may be a flareup of her MS but her MS MRI scan was with no acute changes. In ER found to have acute UTI which has resulted in acute onset of atrial fibrillation with rapid ventricular response. Hypomagnesemia. Those were supplemented, she was treated for the acute UTI. Placed on Cardizem drip. By time I saw her the next morning she been off the Cardizem drip for about 6 or 7 hours. Heart rate remained stable. I did bump up her metoprolol. Cardiology evaluated no further recommendations. This point she is stable for discharge to home in improving condition. Medications see list. Follow-up with her PCP and cardiology within the next week. Time Spent with Patient Time attestation: Total time spent providing and/or coordinating discharge services: Exam Constitutional Vital Signs, click to edit/add: Last Vital Signs Temp 97.4 F L 09/20/23 08:00 Pulse 109 H 09/20/23 07:59 Resp 14 09/20/23 07:59 BP 131/74 09/20/23 02:19 Pulse Ox 97 09/20/23 07:59 O2 Del Method Room Air 09/20/23 02:19 O2 Flow Rate 3 09/19/23 21:02 Documenting provider has reviewed patient's vital signs: yes Common normals: no apparent distress Chest Common normals: inspection of chest normal and palpation of chest normal Respiratory Common normals: normal respiratory effort and no retractions Cardio Common normals: regular rate and regular rhythm GI Common normals: Normal to inspection, nondistended, normoactive bowel sounds present Extremity Common normals: normal to inspection (Weakness in bilateral lower extremities) and full ROM General: edema (1+ which is chronic for her) DS: Data Data Completed and Pending Labs on day of discharge: Labs from last 24 hours 09/20/23 09/20/23 09/19/23 07:46 03:55 18:30 WBC 4.7 RBC 4.68 Hgb 13.6 Hct 40.7 MCV 87.0 MCH 29.1 MCHC 33.4 RDW 14.6 Plt Count 130 L MPV 12.0 Neut % (Auto) 75.8 H Lymph % (Auto) 11.9 L [place] % (Auto) 11.5 Eos % (Auto) 0.4 L Baso % (Auto) 0.2 Neut # (Auto) 3.6 Lymph # (Auto) 0.6 L [place] # (Auto) 0.5 Eos # (Auto) 0.0 Baso # (Auto) 0.0 Abs Immat Gran (auto) 0.01 Imm/Tot Granulo (auto) 0.2 PT INR VBG pH VBG pCO2 Sodium 130 L Potassium 4.2 Chloride 97 L Carbon Dioxide 22.7 Anion Gap 14.5 BUN 8.0 Creatinine 0.46 L Est GFR ( Amer) >60 Est GFR (Non-Af Amer) >60 BUN/Creatinine Ratio 17.4 Glucose 51 L Lactate Calcium 9.5 Magnesium 1.7 L Total Bilirubin 0.5 AST 50 H ALT 55 Alkaline Phosphatase 151 H Troponin I High Sens 41.6 Total Protein 6.8 Albumin 3.3 L Globulin 3.5 Albumin/Globulin Ratio 0.9 TSH Thyroxine (T4) 11.40 Urine Color Lt. yellow Urine Clarity Clear Urine pH 6.5 Ur Specific [place] 1.020 Urine Protein Negative Urine Glucose (UA) Negative Urine Ketones Trace A Urine Occult Blood Trace-i Urine Nitrite Positive A Urine Bilirubin Negative Urine Urobilinogen 0.2 Ur Leukocyte Esterase Large A Urine RBC 0-2 Urine WBC 75-100 A Ur Squamous Epith Cells Rare Urine Crystals None seen Urine Bacteria Large A Urine Casts None seen Urine Mucus Small A Ur Culture Indicated? Yes Ur Random Sodium 83 Adenovirus (PCR) C. pneumoniae DNA (PCR) Coronavirus Type OC43 Coronavirus Type HKU1 Coronavirus Type 229E Coronavirus Type NL63 Human Metapneumovir PCR M. pneumoniae (PCR) Parainfluenza PCR Parainfluenza 2 (PCR) Parainfluenza 3 (PCR) Parainfluenza 4 (PCR) RSV (RT-PCR) Entero/Rhino (PCR) SARS-CoV-2 (PCR) Bordetella pertussis (PCR) B parapertussis DNA PCR Influenza Type A (PCR) Influenza Type B (PCR) POC Glucose 53 L 09/19/23 18:00 WBC 5.9 RBC 4.70 Hgb 13.8 Hct 40.3 MCV 85.7 MCH 29.4 MCHC 34.2 RDW 14.2 Plt Count 137 L MPV 11.7 Neut % (Auto) 82.0 H Lymph % (Auto) 8.0 L [place] % (Auto) 9.2 Eos % (Auto) 0.3 L Baso % (Auto) 0.2 Neut # (Auto) 4.8 Lymph # (Auto) 0.5 L [place] # (Auto) 0.5 Eos # (Auto) 0.0 Baso # (Auto) 0.0 Abs Immat Gran (auto) 0.02 Imm/Tot Granulo (auto) 0.3 PT 11.4 INR 1.08 VBG pH 7.433 H VBG pCO2 40.1 Sodium 120 L* Potassium 4.3 Chloride 90 L Carbon Dioxide 26.2 Anion Gap 8.1 BUN 9.0 Creatinine 0.54 L Est GFR ( Amer) >60 Est GFR (Non-Af Amer) >60 BUN/Creatinine Ratio 16.7 Glucose 83 Lactate 1.3 Calcium 9.8 Magnesium 1.3 L Total Bilirubin 0.5 AST 51 H ALT 59 Alkaline Phosphatase 165 H Troponin I High Sens 39.7 Total Protein 7.3 Albumin 3.6 Globulin 3.7 Albumin/Globulin Ratio 1.0 TSH 2.129 Thyroxine (T4) Urine Color Urine Clarity Urine pH Ur Specific [place] Urine Protein Urine Glucose (UA) Urine Ketones Urine Occult Blood Urine Nitrite Urine Bilirubin Urine Urobilinogen Ur Leukocyte Esterase Urine RBC Urine WBC Ur Squamous Epith Cells Urine Crystals Urine Bacteria Urine Casts Urine Mucus Ur Culture Indicated? Ur Random Sodium Adenovirus (PCR) Not detected C. pneumoniae DNA (PCR) Not detected Coronavirus Type OC43 Not detected Coronavirus Type HKU1 Not detected Coronavirus Type 229E Not detected Coronavirus Type NL63 Not detected Human Metapneumovir PCR Not detected M. pneumoniae (PCR) Not detected Parainfluenza PCR Not detected Parainfluenza 2 (PCR) Not detected Parainfluenza 3 (PCR) Not detected Parainfluenza 4 (PCR) Not detected RSV (RT-PCR) Not detected Entero/Rhino (PCR) Not detected SARS-CoV-2 (PCR) Not detected Bordetella pertussis (PCR) Not detected B parapertussis DNA PCR Not detected Influenza Type A (PCR) Not detected Influenza Type B (PCR) Not detected POC Glucose Discharge Plan Discharge Disposition: Home, Self-Care Condition: Good Discharge Medications: New metoprolol tartrate 25 mg Tablet 50 mg PO BID Qty: 120 11RF Eliquis 5 mg Tablet 5 mg PO BID Qty: 60 11RF levofloxacin 500 mg tablet 500 mg PO DAILY 7 Days Qty: 7 0RF Continued baclofen 20 mg tablet 10 mg PO TID montelukast 10 mg tablet 10 mg PO .hs gabapentin 100 mg capsule 100 mg PO TID cholecalciferol (vitamin D3) 125 mcg (5,000 unit) tablet 10,000 unit PO DAILY multivitamin with folic acid [Daily-Felix (with folic acid)] 400 mcg tablet 1 tab PO DAILY Eye Multivitamin 2,148 mcg-113 mg-45 mg-17.4mg tablet 1 tab PO BID Rx Instructions: administer with AM and PM meals Discontinued spironolactone 25 mg tablet 25 mg PO .am metoprolol tartrate 25 mg tablet 25 mg PO BID Forms: Portal Instructions
--- NOTE | 2023-09-20 09:29 | CM.NOTE ---
Rounds made with Dr. Diamond. Dr. Diamond to check an Echo and determine later this afternoon the plan of care.
--- NOTE | 2023-09-20 09:38 | CM.NOTE ---
Important Message from Medicare ([facility]) reviewed with Berdella and . No questions offered. Signed by . Copy to chart original to Stanislaw.
[2023-09-20] MEDS: APIXABAN 5 MG TABLET PO (10:16)
[2023-09-20] MEDS: MAGNESIUM OXIDE 400 MG TABLET PO (10:16)
[2023-09-20 11:24] LABS: Glucometer 98 mg/dL (74-106)
--- NOTE | 2023-09-20 15:18 | CM.NOTE ---
Discussed with pt, , and daughter's plan of care at discharge. Discussed PT recommendations with family, pt refuse skilled therapy or any HH services. Family state they have enough help at home to care for patient. Discussed what HH services could provide, family continue to deny need for any services.
--- NOTE | 2023-09-20 16:34 | PM.CACN ---
History of Present Illness History of Present Illness Consult date: 09/20/23 Requesting physician: Alex Diamond Consult reason: atrial fibrillation Chief complaint: UTI, Weakness AFIB Hyponatremia Narrative: Patient is a 67 y/o F with a PMHx of MS and HTN who presented to [facility] with c/o weakness and vision changes for several days. She was found to have a UTI and was started on antibiotics. She had an EKG in the ER which found she was in a.fib with RVR. She was started on IVD cardizem. Overnight she converted to sinus rhythm. She was started on Eliquis today. Her daughter notes that she has a hx of nose bleeds. Patient seen and examined at bedside. All of her children were also at bedside. She states she is feeling well overall today. She has some continued weakness. She denies c/o CP, dyspnea, orthopnea, PND, dizziness/LH, palpitations, syncope. She has some mild leg swelling that is chronic, compression stockings are in place. Review of Systems ROS Status of ROS 10 or more systems reviewed and unremarkable except as noted in history and below Neurological Reports: weakness in extremities [facility] Medical History DDD (degenerative disc disease), lumbar ?M51.36 - Other intervertebral disc degeneration, lumbar region (ICD-10) DDD (degenerative disc disease), cervical ?M50.30 - Other cervical disc degeneration, unspecified cervical region (ICD-10) Cataract ?H26.9 - Unspecified cataract (ICD-10) Multiple sclerosis ?G35 - Multiple sclerosis (ICD-10) Neuropathy ?G62.9 - Polyneuropathy, unspecified (ICD-10) Hypertension ?I10 - Essential (primary) hypertension (ICD-10) Surgical History (Updated 09/19/23 @ 21:30 by Simona Perez) History of left shoulder replacement ?Z96.612 - Presence of left artificial shoulder joint (ICD-10) H/O cataract removal with insertion of prosthetic lens ?Z98.49 - Cataract extraction status, unspecified eye (ICD-10) ?Z96.1 - Presence of intraocular lens (ICD-10) History of foot surgery ?Z98.890 - Other specified postprocedural states (ICD-10) History of total hip replacement ?Z96.649 - Presence of unspecified artificial hip joint (ICD-10) Family History (Updated 06/18/23 @ 10:40 by Fidel Braun) Other Family history of CHF (congestive heart failure) Family history of cancer Family history of diabetes mellitus Family history of hypertension Multiple sclerosis S/P triple vessel bypass Social History Within the past year, how often did you have a drink containing alcohol: never Within the past year, how often did you have six or more drinks on one occasion: never Score interpretation: A score less than 3 is consistent with normal alcohol consumption. Smoking status: Former smoker Non-prescribed substance use: denies use Highest level of school completed/degree received: some college, no degree Gender Identity: female Meds Home Medications and Allergies Home Medications Medication Instructions Recorded Confirmed Type baclofen 20 mg tablet 10 mg PO TID 06/18/23 09/19/23 History cholecalciferol (vitamin D3) 125 10,000 unit PO DAILY 06/18/23 09/19/23 History mcg (5,000 unit) tablet gabapentin 100 mg capsule 100 mg PO TID 06/18/23 09/19/23 History montelukast 10 mg tablet 10 mg PO .hs 06/18/23 09/19/23 History multivitamin with folic acid 400 1 tab PO DAILY 06/18/23 09/19/23 History mcg tablet (Daily-Felix (with folic acid)) vitamins A,C,T-aflj-lktwpz 2,148 1 tab PO BID 09/19/23 09/19/23 History mcg-113 mg-45 mg-17.4 mg tablet (Eye Multivitamin) apixaban 5 mg tablet (Eliquis) 5 mg PO BID #60 tabs 09/20/23 Rx levofloxacin 500 mg tablet 500 mg PO DAILY 7 days #7 tabs 09/20/23 Rx metoprolol tartrate 25 mg tablet 50 mg (2 x 25 mg) PO BID #120 tabs 09/20/23 Rx Allergies Allergy/AdvReac Type Severity Reaction Status Date / Time No Known Drug Allergies Allergy Verified 09/19/23 17:45 Exam Constitutional Vital Signs, click to edit/add: Last Vital Signs Temp 97.8 F 09/20/23 12:00 Pulse 78 09/20/23 12:40 Resp 19 09/20/23 12:40 BP 135/76 09/20/23 12:07 Pulse Ox 97 09/20/23 12:10 O2 Del Method Room Air 09/20/23 11:22 O2 Flow Rate 3 09/19/23 21:02 Documenting provider has reviewed patient's vital signs: yes Common normals: no apparent distress, oriented x3, no limitations and alert General appearance: cooperative and comfortable HENMT Common normals: normocephalic, head/scalp atraumatic, external ears normal and external nose normal Eye Common normals: EOMs intact bilaterally and conjunctivae normal Neck & C-Spine Common normals: supple and no JVD Respiratory Common normals: normal respiratory effort, no use of accessory muscles and clear to auscultation bilaterally Cardio Common normals: no JVD, regular rate, regular rhythm, S1 normal heart sound, S2 normal heart sound, no murmurs and peripheral pulses 2+ throughout GI Common normals: Normal to inspection, nondistended, normoactive bowel sounds present Extremity General: edema (mild BLE edema, compression stockings in place) Neuro Common normals: oriented x3 and moves all extremities Speech: abnormal speech (slow) Results Labs and Meds Lab results: Cardiac Enzymes 09/19/23 09/20/23 Range/Units 18:00 03:55 AST 51 H 50 H (15-37) U/L Coagulation 09/19/23 Range/Units 18:00 PT 11.4 (9.0-11.6) sec CBC 09/19/23 09/20/23 Range/Units 18:00 03:55 WBC 5.9 4.7 (4.0-11.0) 10^3/uL RBC 4.70 4.68 (4.20-5.40) 10^6/uL Hgb 13.8 13.6 (12.0-16.0) g/dL Hct 40.3 40.7 (36.0-48.0) % Plt Count 137 L 130 L (150-450) 10^3/uL Neut # (Auto) 4.8 3.6 (1.4-6.5) 10^3/uL Lymph # (Auto) 0.5 L 0.6 L (1.2-3.8) 10^3/uL Gosper # (Auto) 0.5 0.5 (0.3-0.8) 10^3/uL Eos # (Auto) 0.0 0.0 (0.0-0.7) 10^3/uL Baso # (Auto) 0.0 0.0 (0.0-0.1) 10^3/uL Comprehensive Metabolic Panel 09/19/23 09/20/23 Range/Units 18:00 03:55 Sodium 120 L* 130 L (136-145) mmol/L Potassium 4.3 4.2 (3.5-5.1) mmol/L Chloride 90 L 97 L (98-107) mmol/L Carbon Dioxide 26.2 22.7 (21.0-32.0) mmol/L BUN 9.0 8.0 (7.0-18.0) mg/dL Creatinine 0.54 L 0.46 L (0.55-1.02) mg/dL Glucose 83 51 L (74-106) mg/dL Calcium 9.8 9.5 (8.5-10.1) mg/dL AST 51 H 50 H (15-37) U/L ALT 59 55 (14-59) U/L Alkaline Phosphatase 165 H 151 H (46-116) U/L Total Protein 7.3 6.8 (6.4-8.2) g/dL Albumin 3.6 3.3 L (3.4-5.0) g/dL Intake and Output 09/20/23 09/20/23 09/20/23 07:59 15:59 23:59 Intake Total 1000 / 2109.417 905 / 905 Balance 1000 / 2109.417 905 / 905 Intake: Oral 350 / 350 IV 1000 / 2109.417 555 / 555 0.9 % Sodium Chloride 1,000 ml 1000 / 1000 355 / 355 @ 100 mls/hr IV .Q10H EZEQUIEL Rx#: [id number] Ciprofloxacin in 5 % Dextrose 200 / 200 400 mg In 200 ml @ 200 mls/hr IV Q12H EZEQUIEL Rx#:[id number] Other: # Voids 1 1 # Bowel Movements 1 Imaging and Cardiology Echo: report reviewed ECG results: report reviewed Assessment and Plan Assessment and Plan (1) Acute hyponatremia: (2) New onset a-fib: Plan #Atrial fibrillation with RVR - resolved #Hypertension #UTI #Hyponatremia #MS PLAN: -A.fib may have been triggered by underlying infection. -Patient converted to SR while on IVD cardizem and is maintaining sinus rhythm. Agree with transitioning cardizem gtt to PO metoprolol. -ECHO done today shows preserved LVEF, normal RV size and function, normal LA, mild to moderate MR. -[id number] = 3 (age, female, HTN). Given her elevated stroke risk, recommend lifelong anticoagulation for stroke prophylaxis. Agree with Eliquis 5mg BID. Of note, patient has frequent nose bleeds along with balance issues with her MS. Can consider patient for LAAO device if issues arise. -Follow-up with cardiology in 2-4 weeks after discharge. Please let us know if any further questions or concerns. Thank you! Charmaine Flowers APRN-[employer] [facility]
--- NOTE | 2023-09-21 14:46 | CM.DCFOLLOWU ---
Person spoke with: patient How are you feeling? much better How is your pain? no pain Did you understand your discharge instructions? yes Do you have any questions about your discharge instructions? no Were you given any prescriptions at discharge? yes Were you able to get your prescriptions filled?yes Do you understand how to take your medications as ordered? yes Do you have any questions about your follow up appointment and do you plan to keep your follow up appointment? no questions, aware of follow up with PCP and [facility] cardiology Is there anything else that you would like to discuss? no Questions/Comments/Concerns/Other: N/A
== END 2023-09-20 15:35 | disposition home or self-care (01) | DRG 309 ==
LOC: ER 19:39 → ICU 21:00
PROVIDERS: Physician Assistant; Registered Nurse; Admitting Provider Family Medicine; Emergency Provider Emergency Medicine; PCP Family Medicine; Visit Provider Family Medicine
DX: I48.91 Unspecified atrial fibrillation (principal); E87.1 Hypo-osmolality and hyponatremia; N39.0 Urinary tract infection, site not specified; E83.42 Hypomagnesemia; I10 Essential (primary) hypertension; G62.9 Polyneuropathy, unspecified; G35 Multiple sclerosis; R60.9 Edema, unspecified; Z20.822 Contact with and (suspected) exposure to COVID-19; M51.36 Other intervertebral disc degeneration, lumbar region; M50.30 Other cervical disc degeneration, unspecified cervical region; R79.89 Other specified abnormal findings of blood chemistry; B96.20 Unspecified Escherichia coli [E. coli] as the cause of diseases classified elsewhere; Z87.891 Personal history of nicotine dependence; Z96.659 Presence of unspecified artificial knee joint; Z96.649 Presence of unspecified artificial hip joint; Z96.612 Presence of left artificial shoulder joint; Z79.899 Other long term (current) drug therapy; Z98.49 Cataract extraction status, unspecified eye; Z96.1 Presence of intraocular lens; Z98.890 Other specified postprocedural states
CPT/HCPCS: 0202U; 36415; 71045; 80053; 81001; 82800; 82948; 83605; 83735; 84300; 84436; 84443; 84484; 85025; 85610; 86850; 86900; 86901; 87040; 87086; 87150; 87186; 93005; 93306; 93356; 94667; 96365; 96366; 96367; 96368; 96372; 96375; 96376; 97163; 99285

== ENCOUNTER 2023-09-25 12:19 | Outpatient (OUT) | payer MEDICARE, SELFPAY ==
[2023-09-25 13:00] LABS: Estimated Average Glucose 111 mg/dL; Glycohemoglobin A1C 5.5 % (4.5-6.2)
[2023-09-25 13:20] LABS: Free T4 1.28 ng/dL (0.76-1.46)
[2023-09-25 13:21] LABS: Alanine Aminotransferase 49 U/L (14-59); Albumin Globulin Ratio 0.9; Albumin Level 3.2 g/dL (3.4-5.0); Alkaline Phosphatase 137 U/L (46-116); Anion Gap 8.4; Aspartate Amino Transferase 30 U/L (15-37); BUN Creatinine Ratio 21.8; Bilirubin Total 0.4 mg/dL (0.2-1.0); Calcium 10.3 mg/dL (8.5-10.1); Carbon Dioxide 35.7 mmol/L (21.0-32.0); Chloride 102 mmol/L (98-107); Estimated GFR (African America >60 (>=60); Estimated GFR (Non-African Ame >60 (>=60); Globulin 3.5 g/dL; Glucose 98 mg/dL (74-106); Potassium 5.1 mmol/L (3.5-5.1); Sodium 141 mmol/L (136-145); Thyroid Stimulating Hormone 1.735 uIU/mL (0.358-3.740); Total Protein 6.7 g/dL (6.4-8.2)
== END 2023-09-25 12:20 | disposition home or self-care (01) ==
LOC: LAB 12:21
PROVIDERS: PCP Family Medicine; Visit Provider Family Medicine
DX: I48.0 Paroxysmal atrial fibrillation (principal); R73.9 Hyperglycemia, unspecified; E87.1 Hypo-osmolality and hyponatremia
CPT/HCPCS: 36415; 80053; 83036; 84439; 84443

== ENCOUNTER 2023-09-26 16:14 | Outpatient (OUT) | payer MEDICARE, SELFPAY ==
[2023-09-28 12:09] LABS: PTH, Intact 16 pg/mL (15-65)
[2023-09-28 13:14] LABS: Calcium, Ionized, Serum 5.3 mg/dL (4.5-5.6)
== END 2023-09-26 16:15 | disposition home or self-care (01) ==
LOC: LAB 16:16
PROVIDERS: PCP Family Medicine; Visit Provider Family Medicine
DX: E83.52 Hypercalcemia (principal)
CPT/HCPCS: 36415; 82330; 83970

== ENCOUNTER 2023-12-26 15:19 | Outpatient (OUT) | payer MEDICARE, SELFPAY ==
[2023-12-26 15:55] LABS: Bilirubin Urine NEGATIVE (NEGATIVE); Blood Urine TRACE-I (NEGATIVE); Clarity Urine SL CLOUDY (CLEAR); Color Urine LT. YELLOW (YELLOW); Glucose Urine UA NEGATIVE (NEGATIVE); Ketones Urine NEGATIVE (NEGATIVE); Leukocyte Esterase Urine LARGE (NEGATIVE); Nitrite Urine NEGATIVE (NEGATIVE); Protein Urine NEGATIVE (NEG/TRACE); Urobilinogen Urine 0.2 EU/dL (0.2-1.0)
[2023-12-26 15:58] LABS: Urine Microscopic Indicated YES
[2023-12-26 16:07] LABS: Bacteria Urine SMALL #/HPF (NONE SEEN); Crystals Seen? None Seen #/HPF (None Seen); Mucus Urine NONE SEEN (NONE SEEN); Squamous Epithelial Cell Urine NONE SEEN #/LPF (NONE/RARE); WBC Urine >100 #/HPF (NONE SEEN)
[2023-12-26 16:08] LABS: Cast Seen? NONE SEEN #/LPF (NONE SEEN); Urine Culture Indicated YES
== END 2023-12-26 15:20 | disposition home or self-care (01) ==
LOC: LAB 15:21
PROVIDERS: PCP Family Medicine; Visit Provider Family Medicine
DX: R39.9 Unspecified symptoms and signs involving the genitourinary system (principal); R82.90 Unspecified abnormal findings in urine
CPT/HCPCS: 81001; 87086

== ENCOUNTER 2024-04-17 08:38 | Outpatient (OUT) | payer MEDICARE, SELFPAY ==
[2024-04-17 09:14] LABS: Hematocrit 42.6 % (36.0-48.0); Mean Corpuscular HGB Conc 32.9 g/dL (29.9-35.2); Mean Corpuscular Hemoglobin 28.9 pg (26.7-34.0); Mean Platelet Volume 11.7 fL (9.5-13.5); Platelet Count 134 10^3/uL (150-450); Red Blood Count 4.84 10^6/uL (4.20-5.40); Red Cell Distribution Width 14.3 % (11.0-15.0); White Blood Count 3.6 10^3/uL (4.0-11.0)
[2024-04-17 10:13] LABS: Alanine Aminotransferase 32 U/L (14-59); Albumin Globulin Ratio 1.2; Albumin Level 3.6 g/dL (3.4-5.0); Alkaline Phosphatase 137 U/L (46-116); Anion Gap 12.2; Aspartate Amino Transferase 26 U/L (15-37); BUN Creatinine Ratio 22.6; Bilirubin Total 0.4 mg/dL (0.2-1.0); Chloride 99 mmol/L (98-107); Estimated GFR (African America >60 (>=60 mL/min/1.73m^2); Estimated GFR (Non-African Ame >60 (>=60 mL/min/1.73m^2); Globulin 2.9 g/dL; Glucose 75 mg/dL (74-106); Potassium 4.2 mmol/L (3.5-5.1); Sodium 137 mmol/L (136-145); Total Protein 6.5 g/dL (6.4-8.2)
[2024-04-17 10:42] LABS: Basophils Abs Manual 0.03 10^3/uL (0.00-0.10); Lymphocytes Absolute Manual 0.82 10^3/uL (1.20-3.80); Monocytes Absolute Manual 0.28 10^3/uL (0.30-0.80); Segmented Neut Absolute Manual 2.41 10^3/uL (1.4-6.5)
== END 2024-04-17 08:39 | disposition home or self-care (01) ==
LOC: LAB 08:38
PROVIDERS: PCP Family Medicine; Visit Provider Nurse Practitioner Adult Health
DX: G35 Multiple sclerosis (principal)
CPT/HCPCS: 36415; 80053; 85007; 85027

== ENCOUNTER 2024-06-12 08:18 | Emergency (ER) | payer MEDICARE, SELFPAY ==
--- NOTE | 2024-06-12 08:37 | CT_ITS ---
[address] [address] Patient Name: ALETA CA MRN: [facility]:[id number] date: 1955 Sex: F Assigned Patient Location: ER Current Patient Location: ED.MAIN Accession/Order Number: [id number] Exam Date: 06/12/2024 09:10 Report Date: 06/12/2024 10:15 At the request of: KADIE BEE Procedure: CT head/brain wo con CT HEAD WITHOUT CONTRAST, 06/12/2024 HISTORY: Fall. Head injury. COMPARISON: None. TECHNIQUE: Noncontrast axial CT images obtained through the head. Reconstructions obtained in the sagittal and coronal planes. Dose reduction techniques were achieved by using automated exposure control and/or adjustment of mA and/or kV according to patient size and/or use of iterative reconstruction technique. FINDINGS: Paranasal sinuses are clear. Mastoid air cells are clear. Skull base is intact. No skull fracture. Mild periorbital soft tissue swelling on the right. Intraorbital contents are intact. No hydrocephalus. No extra-axial fluid collection. No mass effect. No acute intracranial hemorrhage. Mild brain atrophy. June matter and white matter differentiation is intact. No masses. CT/CT head/brain wo con IMPRESSION: 1. No acute findings. No acute intracranial hemorrhage. No skull fracture. 2. Periorbital soft tissue swelling on the right side. Intraorbital contents are intact. Electronically authenticated by: SEFERINO PAZ Date: 06/12/2024 10:15
--- NOTE | 2024-06-12 08:38 | CT_ITS ---
The [address] [address] Patient Name: ALETA CA MRN: [id number] date: 1955 Sex: F Assigned Patient Location: ER Current Patient Location: ED.MAIN Accession/Order Number: [id number] Exam Date: 06/12/2024 09:10 Report Date: 06/12/2024 10:15 At the request of: KADIE BEE Procedure: CT cervical spine wo con CT CERVICAL SPINE WITHOUT CONTRAST, 06/04/2024 HISTORY: Fall. Trauma. COMPARISON: None. TECHNIQUE: Noncontrast axial CT images obtained through the cervical spine. Reconstructions obtained in the sagittal and coronal planes. Dose reduction techniques were achieved by using automated exposure control and/or adjustment of mA and/or kV according to patient size and/or use of iterative reconstruction technique. FINDINGS: Alignment normal. No subluxation. Odontoid process is intact. Facet joints are intact. No acute cervical spine fracture. Severe degenerative disc disease with severe disc space narrowing at C4-C5 through C6-C7. No CT evidence of spinal cord compression. No paraspinal soft tissue swelling. There is a large nodule in the right lobe of thyroid measuring approximately [address]/CT cervical spine wo con IMPRESSION: 1. No acute cervical spine fracture or traumatic subluxation. 2. Large nodule in the right lobe of thyroid measuring approximately 3 cm. Recommend follow-up thyroid ultrasound. Electronically authenticated by: SEFERINO PAZ Date: 06/12/2024 10:15
--- NOTE | 2024-06-12 08:39 | ED_ITS ---
HPI HPI - General Adult General Chief complaint: Head Injury Stated complaint: LACERATION/ HEAD INJURY/ FALL Time Seen by Provider: 06/12/24 08:20 History of Present Illness HPI narrative: 68-year-old female presents for a fall and a laceration above her right eye. This happened when she was walking and she tripped and fell and she hit her face on concrete. No LOC and she does not complain to me of neck pain. She does not take any blood thinners other than aspirin. No injury to her extremities, just the face. This happened just before coming into the emergency department. Related Data Home Medications ?Medication ?Instructions ?Recorded ?Confirmed baclofen 20 mg tablet 10 mg PO TID 06/18/23 09/19/23 cholecalciferol (vitamin D3) 125 10,000 unit PO DAILY 06/18/23 09/19/23 mcg (5,000 unit) tablet gabapentin 100 mg capsule 100 mg PO TID 06/18/23 09/19/23 montelukast 10 mg tablet 10 mg PO .hs 06/18/23 09/19/23 multivitamin with folic acid 400 1 tab PO DAILY 06/18/23 09/19/23 mcg tablet (Daily-Felix (with folic acid)) vitamins A,C,P-argm-dgfdxa 2,148 1 tab PO BID 09/19/23 09/19/23 mcg-113 mg-45 mg-17.4 mg tablet (Eye Multivitamin) Previous Rx's ?Medication ?Instructions ?Recorded apixaban 5 mg tablet (Eliquis) 5 mg PO BID #60 tabs 09/20/23 levofloxacin 500 mg tablet 500 mg PO DAILY 7 days #7 tabs 09/20/23 metoprolol tartrate 25 mg tablet 50 mg (2 x 25 mg) PO BID #120 tabs 09/20/23 Allergies Allergy/AdvReac Type Severity Reaction Status Date / Time No Known Drug Allergies Allergy Verified 09/19/23 17:45 Opioid HPI Opioid Management Most Recent Opioid Data: No Data to Display Review of Systems ROS Narrative A ten point review of systems is negative except as noted above. [facility] Medical History DDD (degenerative disc disease), lumbar ?M51.36 - Other intervertebral disc degeneration, lumbar region (ICD-10) DDD (degenerative disc disease), cervical ?M50.30 - Other cervical disc degeneration, unspecified cervical region (ICD- 10) Cataract ?H26.9 - Unspecified cataract (ICD-10) Multiple sclerosis ?G35 - Multiple sclerosis (ICD-10) Neuropathy ?G62.9 - Polyneuropathy, unspecified (ICD-10) Hypertension ?I10 - Essential (primary) hypertension (ICD-10) Surgical History (Updated 09/19/23 @ 21:30 by Simona Perez) History of left shoulder replacement ?Z96.612 - Presence of left artificial shoulder joint (ICD-10) H/O cataract removal with insertion of prosthetic lens ?Z98.49 - Cataract extraction status, unspecified eye (ICD-10) ?Z96.1 - Presence of intraocular lens (ICD-10) History of foot surgery ?Z98.890 - Other specified postprocedural states (ICD-10) History of total hip replacement ?Z96.649 - Presence of unspecified artificial hip joint (ICD-10) Family History (Updated 06/18/23 @ 10:40 by Fidel Braun) Other Family history of CHF (congestive heart failure) Family history of cancer Family history of diabetes mellitus Family history of hypertension Multiple sclerosis S/P triple vessel bypass Social History Within the past year, how often did you have a drink containing alcohol: never Within the past year, how often did you have six or more drinks on one occasion: never Score interpretation: A score less than 3 is consistent with normal alcohol consumption. Smoking status: Former smoker Non-prescribed substance use: denies use Highest level of school completed/degree received: some college, no degree Little interest or pleasure in doing things: not at all Feeling down, depressed, or hopeless: not at all Gender Identity: female Exam Narrative Exam Narrative: Nurses note and vital signs reviewed and patient is not hypoxic. General: The patient appears in no apparent distress. Skin: Warm, dry, no pallor noted. There is no rash noted. Head: Normocephalic, small hematoma and 2 cm laceration present superior and lateral to the right eye. No active bleeding Eye: Normal conjunctiva, no drainage Ears, Nose, Mouth, and Throat: oral mucosa is moist. Nares patent. Cardiovascular: Regular Rate and Rhythm Respiratory: Patient is in no distress, no accessory muscle use, lungs are clear to auscultation, no wheezing, rales or rhonchi Back: non-tender, cervical spine nontender GI: Soft and nontender Musculoskeletal: The patient has no evidence of calf tenderness, no pitting edema, symmetrical pulses noted bilaterally Neurological: A&O, normal speech Psychiatric: Cooperative Constitutional Vital Signs, click to edit/add: Last Vital Signs Temp 97.6 F 06/12/24 08:40 Pulse 46 L 06/12/24 08:40 Resp 18 06/12/24 08:40 BP 158/80 H 06/12/24 08:40 Pulse Ox 99 06/12/24 08:40 O2 Del Method Room Air 06/12/24 08:40 Course Vital Signs Vital signs: Vital Signs Temperature 97.6 F 06/12/24 08:40 Pulse Rate 46 L 06/12/24 08:40 Respiratory Rate 18 06/12/24 08:40 Blood Pressure 158/80 H 06/12/24 08:40 Pulse Oximetry 99 06/12/24 08:40 Oxygen Delivery Method Room Air 06/12/24 08:40 Temperature 97.6 F 06/12/24 08:40 Pulse Rate 46 L 06/12/24 08:40 Respiratory Rate 18 06/12/24 08:40 Blood Pressure 158/80 H 06/12/24 08:40 Pulse Oximetry 99 06/12/24 08:40 Oxygen Delivery Method Room Air 06/12/24 08:40 Medical Decision Making MDM Narrative Medical decision making narrative: CT brain and CT C-spine are negative. Tetanus status is updated and sutures are to be removed in a week. Treatment diagnosis and follow-up were discussed with the patient and her . The nodule noted on the CAT scan of her C-spine is known to the patient and this has already been evaluated. Differential Diagnosis Differential Diagnosis: Laceration, intracranial hemorrhage, C-spine fracture Imaging Data CT scan - head: Radiologist's impression: ITS Impressions Head CT 06/12/24 08:37 IMPRESSION: 1. No acute findings. No acute intracranial hemorrhage. No skull fracture. 2. Periorbital soft tissue swelling on the right side. Intraorbital contents are intact. Electronically authenticated by: SEFERINO PAZ Date: 06/12/2024 10:[address] 06/12/24 08:38 IMPRESSION: 1. No acute cervical spine fracture or traumatic subluxation. 2. Large nodule in the right lobe of thyroid measuring approximately 3 cm. Recommend follow-up thyroid ultrasound. Electronically authenticated by: SEFERINO PAZ Date: 06/12/2024 10:12 Discharge Plan Discharge Chief Complaint: Head Injury Clinical Impression: Facial laceration, Fall Patient Disposition: Home, Self-Care Time of Disposition Decision: 10:14 Condition: Good Mode of Transportation: Private Vehicle Prescriptions / Home Meds: No Action baclofen 20 mg tablet 10 mg PO TID montelukast 10 mg tablet 10 mg PO .hs gabapentin 100 mg capsule 100 mg PO TID cholecalciferol (vitamin D3) 125 mcg (5,000 unit) tablet 10,000 unit PO DAILY multivitamin with folic acid [Daily-Felix (with folic acid)] 400 mcg tablet 1 tab PO DAILY Eye Multivitamin 2,148 mcg-113 mg-45 mg-17.4mg tablet 1 tab PO BID Rx Instructions: administer with AM and PM meals metoprolol tartrate 25 mg Tablet 50 mg PO BID Qty: 120 11RF Eliquis 5 mg Tablet 5 mg PO BID Qty: 60 11RF levofloxacin 500 mg tablet 500 mg PO DAILY 7 Days Qty: 7 0RF Print Language: Citizen Of [place] Instructions: Laceration (ED), Fall Prevention for Older Adults (ED) Additional Instructions: Sutures to be removed in a week. Referrals: SADIE MURCIA [Primary Care Provider] - 1 week Procedures ED Procedure Instructions Procedures Procedures: The following procedure was performed by me. Local infiltration was carried out with 1% lidocaine without epinephrine resulting in complete skin anesthesia. The area was prepped with Betadine x 3 and draped sterilely. It was explored for foreign bodies and none were found and then closed with four 6-0 Ethilon sutures resulting in good skin reapproximation and complete hemostasis. No complications.
[2024-06-12 08:40] VITALS: BP 158/80; PULSE 46; TEMP 36.4; O2SAT 99; BMI 27.8
[2024-06-12] MEDS: LIDOCAINE HCL 1% 100 MG/10 ML MDV INJ (09:37)
[2024-06-12] MEDS: ADACEL DIPH,PERTUSS(ACELL),TET VAC/PF 0.5 ML ADULT SYRINGE IM (10:02)
== END 2024-06-12 10:26 | disposition home or self-care (01) ==
PROVIDERS: Emergency Provider Emergency Medicine; PCP Family Medicine
DX: S01.81XA Laceration without foreign body of other part of head, initial encounter (principal); W01.0XXA Fall on same level from slipping, tripping and stumbling without subsequent striking against object, initial encounter; Z96.612 Presence of left artificial shoulder joint; Z87.891 Personal history of nicotine dependence; Z23 Encounter for immunization; E04.1 Nontoxic single thyroid nodule
CPT/HCPCS: 12011; 70450; 72125; 90471; 90715; 99285

== ENCOUNTER 2024-06-26 13:01 | Outpatient (OUT) | payer MEDICARE, SELFPAY ==
--- NOTE | 2024-06-26 13:22 | US_ITS ---
The [address] [address] Patient Name: ALETA CA MRN: [id number] date: 1955 Sex: F Assigned Patient Location: [facility] Current Patient Location: [facility] Accession/Order Number: [id number] Exam Date: 06/26/2024 13:23 Report Date: 06/26/2024 14:19 At the request of: SADIE MURCIA Procedure: US venous doppler LE RT CLINICAL DATA: Ankle pain PROCEDURE: Right lower extremity venous duplex ultrasound. TECHNIQUE: June-scale, color flow, and waveform spectral analysis was performed of the right lower extremity. FINDINGS: The right common femoral, profunda femoral, femoral, and popliteal veins were compressible. The saphenous vein was compressible. No venous thrombosis was seen. The veins fill with color Doppler. Augmentation was normal. Edema was noted US/US venous doppler LE RT IMPRESSION: 1. No acute lower extremity deep venous thrombosis. 2. No superficial venous thrombosis. Electronically authenticated by: Sachi SANTIAGO Date: 06/26/2024 14:19
== END 2024-06-26 13:02 | disposition home or self-care (01) ==
PROVIDERS: PCP Family Medicine; Visit Provider Family Medicine
DX: M25.571 Pain in right ankle and joints of right foot (principal); R22.41 Localized swelling, mass and lump, right lower limb; M79.661 Pain in right lower leg; I87.2 Venous insufficiency (chronic) (peripheral); I83.893 Varicose veins of bilateral lower extremities with other complications
CPT/HCPCS: 93971

== ENCOUNTER 2024-11-17 09:04 | Outpatient (OUT) | payer MEDICARE, SELFPAY ==
[2024-11-17 10:04] LABS: Creatinine Urine Random 22.81 mg/dL (20.00-300.00); Microalbumin Urine Random <1.3 mg/dL (<=30.0)
[2024-11-17 10:06] LABS: Alanine Aminotransferase 44 U/L (14-59); Albumin Globulin Ratio 1.2; Albumin Level 3.5 g/dL (3.4-5.0); Alkaline Phosphatase 139 U/L (46-116); Anion Gap 8.6; Aspartate Amino Transferase 30 U/L (15-37); BUN Creatinine Ratio 27.7; Bilirubin Total 0.3 mg/dL (0.2-1.0); Calcium 9.4 mg/dL (8.5-10.1); Carbon Dioxide 35.6 mmol/L (21.0-32.0); Chloride 102 mmol/L (98-107); Chol HDL Ratio 1.8; Cholesterol 157 mg/dL (<=200); Estimated GFR (African America >60 (>=60 mL/min/1.73m^2); Estimated GFR (Non-African Ame >60 (>=60 mL/min/1.73m^2); Glucose 71 mg/dL (74-106); HDL Cholesterol 88 mg/dL (40-60); Potassium 5.2 mmol/L (3.5-5.1); Sodium 141 mmol/L (136-145); Total Protein 6.5 g/dL (6.4-8.2); Triglycerides 79 mg/dL (<=150); VLDL CHOLESTEROL 15.8 mg/dL
== END 2024-11-17 09:05 | disposition home or self-care (01) ==
LOC: LAB 09:04
PROVIDERS: PCP Family Medicine; Visit Provider Family Medicine
DX: G35 Multiple sclerosis (principal); I10 Essential (primary) hypertension; I48.91 Unspecified atrial fibrillation; I34.0 Nonrheumatic mitral (valve) insufficiency; Z79.899 Other long term (current) drug therapy
CPT/HCPCS: 36415; 80053; 80061; 82043; 82570; 85025

== ENCOUNTER 2024-11-17 09:13 | Outpatient (OUT) | payer MEDICARE, SELFPAY ==
[2024-11-17 09:57] LABS: Basophils Percent Auto 0.6 % (0.2-2.0); Eosinophils Absolute Auto 0.1 10^3/uL (0.0-0.7); Eosinophils Percent Auto 1.6 % (0.9-7.0); Hematocrit 39.7 % (36.0-48.0); Hemoglobin 13.1 g/dL (12.0-16.0); Lymphocytes Absolute Auto 0.8 10^3/uL (1.2-3.8); Lymphocytes Percent Auto 15.3 % (20.5-60.0); Mean Corpuscular Hemoglobin 29.8 pg (26.7-34.0); Mean Corpuscular Volume 90.2 fL (81.0-99.0); Mean Platelet Volume 11.9 fL (9.5-13.5); Monocytes Absolute Auto 0.6 10^3/uL (0.3-0.8); Monocytes Percent Auto 11.9 % (1.7-12.0); Neutrophils Absolute Auto 3.5 10^3/uL (1.4-6.5); Neutrophils Percent Auto 70.6 % (43.0-75.0); Platelet Count 120 10^3/uL (150-450); White Blood Count 4.9 10^3/uL (4.0-11.0)
== END 2024-11-17 09:14 | disposition home or self-care (01) ==
PROVIDERS: PCP Family Medicine; Visit Provider Nurse Practitioner Adult Health
DX: G35 Multiple sclerosis (principal)
CPT/HCPCS: 36415; 85025

== ENCOUNTER 2025-05-07 09:29 | Outpatient (REF) | payer MEDICARE, SELFPAY ==
--- OUTSIDE RECORDS SUMMARY | 2025-05-07 09:32 | XMS_ITS | Clinical Summary ---
Author Organization [facility] Address [address] [place] [address] Care Team Providers Care Patternmaker Apprentice Wood Name Role Phone Chencho Galvan Unavailable Willy Weber MD Primary Care Provider Allergies No known active allergies Medications MedicationSigDispense QuantityRefillsLast FilledStart DateEnd DateStatus furosemide (LASIX) 20 mg tablet Take 20 mg by mouth once daily.Active losartan (COZAAR) 25 mg tablet Take 25 mg by mouth once daily.Active baclofen (LIORESAL) 20 mg tablet Take 20 mg by mouth three times daily.Active metoprolol tartrate, short acting, (LOPRESSOR) 25 mg tablet Take 25 mg by mouth twice daily.Active acetaminophen (TYLENOL EXTRA STRENGTH) 500 mg tablet Take 500 mg by mouth every 8 hours as needed.Active MULTIVIT &MINERALS/FERROUS FUM (MULTI VITAMIN ORAL) Take by mouth once daily.Active potassium chloride (KLOR-CON 10) 10 mEq tablet Take 10 mEq by mouth once daily.Active spironolactone (ALDACTONE) 25 mg tablet Take 25 mg by mouth twice daily.Active cranberry-vitamin C-mannose 250-30-50 mg chew Take by mouth twice daily.Active vitamin D3-folic acid 125 mcg (5,000 unit)-1 mg tab Take by mouth twice daily.Active Calcium Citrate 250 mg calcium tab Take by mouth three times daily.Active vit A/vit C/vit E/zinc/copper (PRESERVISION AREDS ORAL) Take by mouth twice daily.Active montelukast (SINGULAIR) 10 mg tablet Take 10 mg by mouth daily at bedtime.Active gabapentin (NEURONTIN) 100 mg capsule Take 100 mg by mouth three times daily.Active tramadol HCl (ULTRAM ORAL) Take by mouth as needed. Up to 3 times dailyActive ocrelizumab (OCREVUS INTRAVENOUS) Inject intravenously. IV Every 6 months Last one was Julctive Psyllium Seed-Sucrose (FIBER) Take by mouth as needed.Active Active Problems ProblemNoted DateDiagnosed DatePrimary phnqltbdixct88/15/2022Former smoker 01/27/2022Multiple pcxnfnwod68/15/2022VN (avascular necrosis of bone)01/27/2022 Pain in limb09/10/2006Flat foot(734)2003Acute upper respiratory infections of multiple or unspecified sites2003 Family History Medical HistoryRelationCommentsCancerFatherkidneyDiabetesMotherHeartMotherCHF HypertensionMotherKidney DiseaseMotherRelationStatusCommentsFatherDeceasedMother Alive Social History Tobacco UseTypesPacks/DayYears UsedDateSmoking Tobacco: HbsritUxxtwmdlqf762 07/16/1971 - 07/16/1991Smokeless Tobacco: Never Comments:quit 10 years ago Alcohol UseStandard Drinks/WeekCommentsNo0 (1 standard drink = 0.6 oz pure alcohol)Area Deprivation IndexAnswerDate RecordedNational Score (1-100), lower number is lower gweb7766State Score (1-10), lower number is lower risk Not on file3Data from: https://www.neighborhoodatlas.[facility].edu/. Last address used for bqkwqmfoudd2845 [address]/11/2022CommentsNoSex and Gender Information ValueDate RecordedSex Assigned at BirthNot on fileLegal NvnTobmmc95/02/2012 10:02 AM ESTGender IdentityNot on fileSexual OrientationNot on file Last Filed Vital Signs Vital SignReadingTime TakenCommentsBlood Hclrpbwl033/7401/27/2022 11:56 AM EDT Mgkni299601/27/2022 11:56 AM VDHMfnmaksehco10.3 ??C (97.3 ??F)01/27/2022 11:56 AM EDTRespiratory Fbju047101/27/2022 11:56 AM EDTOxygen Ctxdzzizpi92%01/27/2022 11:56 AM EDTInhaled Oxygen Concentration--Tytibj22.6 kg (160 lb)01/27/2022 11:56 AM XLCVblpjr843.6 cm (5' 6 )01/27/2022 11:56 AM EDTBody Mass Index25.8201/27/2022 11:56 AM EDT Plan of Treatment Health MaintenanceDue DateLast DoneCommentsAnxiety Dtfqfpesc35/29/1974Depression Etloowybr16/29/1974Hepatitis C Lyowhcysa25/29/1974DTaP,Tdap,Td Vaccine (1 - Tdap)10/11/1974Mammogram Nwekfwakf01/29/1996CT Orplegdetnxh30/29/2001Cologuard (FIT-DNA)10/11/20009352Yfqoqzjeqxd84/29/2001Colorectal Cancer Bwcwkazjk61/29/2001 Fecal Occult Blood10/11/2000Lipid Ggilztqzn67/29/2874Ujvmaeppeiksn11/29/2001 Pneumococcal Vaccine: 50+ (1 of 1 - PCV)10/11/2005Shingrix Vaccine (1 of 2) 10/11/2005Bone Density Lipbxeayb08/29/2021dvance Directive Ngqpsecqzt62/01/2025 Diabetes Vfbzxkpnj26/15/94953401/27/2022ovid-19 Vaccine ( - 2024- season) 2025Influenza Vaccine (#1)2025RSV Vaccine (1 - 1-dose 75+ series) 10/11/2030 Procedures Procedure NamePriorityDate/TimeAssociated DiagnosisCommentsBASIC METABOLIC PANEL Hljjfvv9401/27/2022 1:07 PM EDT Pre-op examination from Last 3 Months or Most Recently Relevant to Health Maintenance Results * (ABNORMAL) BASIC METABOLIC PNL (01/27/2022 1:07 PM EDT)ComponentValueRef Range Test MethodAnalysis TimePerformed AtPathologist AyrbmrtypHooizet5171 - 99 mg/dL01/27/2022 2:02 PM [facility] LABORATORYComment: The [place] Diabetes Association (ADA) provides guidance for cutoff values for fasting glucose andrandom glucose. The ADA defines fasting as no caloric intake for at least 8 hours. Fasting plasma glucose results between 100 to 125 mg/dL indicate increased risk for diabetes (prediabetes). Fasting plasma glucose results greater than or equal to 126 mg/dL meet the criteria for diagnosis of diabetes. In the absence of unequivocal hyperglycemia, results should be confirmed by repeat testing. In a patient with classic symptoms of hyperglycemia or hyperglycemic crisis, random plasma glucose results greater than or equal to 200 mg/dL meet the criteria for diagnosis of diabetes. Reference: Standards of Medical Care in Diabetes 2016, [place] Diabetes Association. Diabetes Care. 2016.39(Suppl 1). RJU573 - 21 mg/dL01/27/2022 2:02 PM [facility] LABORATORYCreatinine0.50(L) 0.58 - 0.96 mg/dL01/27/2022 2:02 PM [facility] NDVGTRYOEKPrnhum954183 - 144 mmol/L01/27/2022 2:02 PM [facility] LABORATORYPotassium4.73.7 - 5.1 mmol/L01/27/2022 2:02 PM [facility] OYQHQPFQODYocbkxnu21695 - 105 mmol/L 01/27/2022 2:02 PM [facility] PXSACDMFRKSR185(H)22 - 30 mmol/L01/27/2022 2:02 PM [facility] LABORATORYAnion Gap8(L)9 - 18 mmol/L01/27/2022 2:02 PM [facility] LABORATORYCalcium, Total10.28.5 - 10.2 mg/dL01/27/2022 2:02 PM [facility] LABORATORYEstimated Glomerular Filtration Mfjd501>=60 mL/min/1.73m 01/27/2022 2:02 PM [facility]ORATORYComment:Estimated Glomerular Filtration Rate (eGFR) is calculated using the 2020 CKD-EPI creatinine equation. This equation utilizes serum creatinine, sex, and age as parameters. The creatinine assay has traceable calibration to isotope dilution-mass spectrometry. Refer to KDIGO guidelines for clinical interpretation. In patients with unstable renal function, e.g. those with acute kidney injury, the eGFRmay not accurately reflect actual GFR.Specimen (Source)Anatomical Location / LateralityCollection Method / VolumeCollection TimeReceived TimeBloodBLOOD SPECIMEN / UnknownVenipuncture / Gowytsp5101/27/2022 1:07 PM EDT01/27/2022 1:08 PM EDT Narrative Authorizing ProviderResult TypeResult StatusTrixie SERRA-CLABORATORY Final ResultPerforming OrganizationAddressCity/State/ZIP CodePhone Number [facility] [address] [place] [address], [place] from Last 3 Months or Most Recently Relevant to Health Maintenance Insurance Care Teams Team MemberRelationshipSpecialtyStart DateEnd Willy Weber MD [address] [facility] [place] [address] PCP - GeneralFamily Medicine01/30/22 Chencho Galvan [address] [place] [id number] ReferringOrthopedics12/28/20
--- OUTSIDE RECORDS SUMMARY | 2025-05-07 09:33 | XMS_ITS | Clinical Summary ---
Author Organization [facility] Address [address] [place] [address] Care Team Providers Care Paper Bag Press Operator Name Role Phone Willy Weber MD Primary Care Provider [phone] Allergies No known active allergies Medications MedicationSigDispense QuantityRefillsLast FilledStart DateEnd DateStatus Eliquis 5 mg tablet Take 5 mg by mouth in the morning and at bedtime.09/21/2023ctive baclofen (Lioresal) 20 mg tablet Take 20 mg by mouth in the morning, afternoon, and at bedtime.10/14/2023ctive ocrelizumab (Ocrevus) 30 mg/mL solution 600 mg.02/27/2022ctive montelukast (Singulair) 10 mg tablet Take 10 mg by mouth in the evening.10/15/2023ctive gabapentin (Neurontin) 100 mg capsule Take 100 mg by mouth in the morning, afternoon, and at bedtime.10/14/2023ctive cholecalciferol (D3-5) 5,000 Units tablet Take 10,000 Units by mouth in the morning.12/22/2022ctive metoprolol tartrate (Lopressor) 25 mg tablet Take 1.5 tablets by mouth 1 (one) time each day. Taking 25mg in the AM, 12.5mg in the PM09/20/2023ctive spironolactone (Aldactone) 25 mg tablet TAKE 1 TABLET BY MOUTH TWICE A DAY FOR 90 DAYS07/12/2023ctive Active Problems ProblemNoted DateDiagnosed DateImpaired gait and Impaired mobility and activities of daily comqfl66 Postoperative painS/P total left hip qtvathvzeiqu30/16/2024 10/30/20235125Kouwtkezzm44aroxysmal atrial zyrdfflkbkiu22/16/2024 Jbraoctbnmvi96ge-related cataract of left eye12/04/2022 10/30/2023rthritis of left hiprthritis of left knee rthritis of shoulder region, left/ Artificial lens vvynxpb61hronic pain vfpniwee02/22/2023 10/30/2023iastolic eettmqdztpt33Early stage dry age-related macular degeneration of left eyeGeneralized muscle weakness Hammertoe of right footLymphopenia Multifocal PVCs with cawpeda39Nonrheumatic mitral valve yledztdxshcvp27Osteopenia Disorder of immune euitso29Supraspinatus syndrome of left brzptgwq56SVT (supraventricular tachycardia)12/04/2022 10/30/2023Tricompartment osteoarthritis of right kneeUrge urinary mdzwdqqzzssa84Uses roller wuscrb47 Varicose veins of both lower bjwxiprduyg04Venous insufficiency Venous stasis dermatitis of left lower dofuamesl70/22/2023 10/30/2023Vitamin D vjofnbffjb77VN (avascular necrosis of bone)enign essential qosyzzimjwox01Former zrnwyk21ain in limbcute upper respiratory asfrczqsi61/29/es /29/ Family History Medical HistoryRelationNameCommentsCABG k9EyvkrovXlzzxrmc artery diseaseBrother Heart failureMotherheart valve diseaseMotherRelationNameStatusCommentsBrother Mother Social History Tobacco UseTypesPacks/DayYears UsedDateSmoking Tobacco: FormerCigarettes Smokeless Tobacco: NeverAlcohol UseStandard Drinks/WeekCommentsNot Currently0 (1 standard drink = 0.6 oz pure alcohol)UT Safety & EnvironmentAnswerDate Recorded Fear of Current or Ex-PartnerNot on file09/20/2023Emotionally AbusedNot on file 09/20/2023hysically AbusedNot on file09/20/2023Sexually AbusedNot on file 09/20/2023hysically or Sexually AbusedNot on file09/20/2023Comments UnknownSex and Gender InformationValueDate RecordedSex Assigned at BirthNot on fileLegal PhaQnpiwh97/07/2024 1:38 PM ESTGender IdentityNot on fileSexual OrientationNot on file Last Filed Vital Signs Vital SignReadingTime TakenCommentsBlood Bfsfjsvt340/7404 11:24 AM EDT Eufwo264910/30/2023 11:24 AM EDTTemperature--Respiratory Rate--Oxygen Saturation 97%10/30/2023 11:24 AM EDTInhaled Oxygen Concentration--Ukgsep82.6 kg (160 lb) 10/30/2023 11:24 AM QKNJcpdxf313.6 cm (5' 6 )10/30/2023 11:24 AM EDTBody Mass Index25.8210/30/2023 11:24 AM EDT Plan of Treatment Health MaintenanceDue DateLast DoneCommentsCT Dlboqnddcfdf36/29/1956olonoscopy 1955olorectal Cancer Zgikdcwxh95/29/1956FIT-DNA1955FIT1955 FOBT1955Medicare Annual Wellness (AWV)1955 2906Izhndswqoiidr53/29/1956 Depression Ivysjnpfi13/29/1968Adult Qcnjfew8410/11/19779856Ixtpmcxnz23/29/1996Zoster Vaccines (1 of 2)10/11/2005Fall Risk Tpmzagzaf38/29/2021OVID-19 Vaccine ( - 2024- season)2025Influenza Vaccine (#1)2025Pneumococcal Vaccine: 50+ BryvkYvhiaxeer02/26/2021, 2020, 09/27/2020HIB VaccinesAged OutNo longer eligible based on patient's age to complete this topicHPV VaccinesAged OutNo longer eligible based on patient's age to complete this topicIPV Vaccines Aged OutNo longer eligible based on patient's age to complete this topic Meningococcal B VaccineAged OutNo longer eligible based on patient's age to complete this topicMeningococcal VaccineAged OutNo longer eligible based on patient's age to complete this topicRotavirus VaccinesAged OutNo longer eligible based on patient's age to complete this topic Insurance Care Teams Team MemberRelationshipSpecialtyStart DateEnd Date Willy Weber MD [address] [place] [address] [facility]10/26/23
--- OUTSIDE RECORDS SUMMARY | 2025-05-07 09:33 | XMS_ITS | Clinical Summary ---
Author Organization [facility] Address [address] [place] [address] Phone Care Team Providers Care Casing Man Name Role Phone Willy Weber MD Primary Care Provider [phone] Allergies No known active allergies Medications MedicationSigDispense QuantityRefillsLast FilledStart DateEnd DateStatus spironolactone (Aldactone) 25 mg tablet Take 1 tablet (25 mg) by mouth twice a day.12/22/2022ctive Singulair 10 mg tablet Take 1 tablet (10 mg) by mouth once daily at bedtime.12/22/2022ctive baclofen (Lioresal) 20 mg tablet Take 1 tablet (20 mg) by mouth 3 times a day.Active gabapentin (Neurontin) 100 mg capsule Take 1 capsule (100 mg) by mouth 3 times a day.Active calcium citrate-vitamin D3 (Citracal+D) 315 mg-5 mcg (200 unit) tablet Take 1 tablet by mouth 2 times a day.Active d-mannose 500 mg capsule Take 2 capsules (1,000 mg) by mouth once daily.Active multivitamin with minerals iron-free (Centrum Silver) Take 1 tablet by mouth once daily.Active vitamin D3/vitamin K2, MK4, (K2 PLUS D3 ORAL) Take by mouth.Active aspirin 81 mg EC tablet Indications:Paroxysmal atrial fibrillation (Multi)Take 1 tablet (81 mg) by mouth once daily. 90 tablet 311415Active metoprolol succinate XL (Toprol-XL) 25 mg 24 hr tablet Indications:Paroxysmal atrial fibrillation (Multi),Essential hypertensionTake 1 tablet (25 mg) by mouth once daily. Do not crush or chew. 90 tablet 307/507ctive Active Problems ProblemNoted DateDiagnosed DateSinus forauvxblue48/11/2025MI 25.0-25.9,adult 05/22/2024Essential iwyjktkywbxx32/29/2024Former zocqsh9511/12/2023aroxysmal atrial psfivuglnevf68/29/2024Mitral valve fplhjuhtkweaq49/29/2024Multiple thqvqlksa22/29/2024 Resolved Problems ProblemNoted DateDiagnosed DateResolved DateSVT (supraventricular tachycardia) /0680Hjxbspmgedvskl46/29/202407/MI 23.0-23.9, adult Encounters DateTypeDepartmentCare RaobRmfdhfdlyep88/06/[address] [place] [address] Lilian Christine LPN Medication Question; Advice Onlyfrom Last 3 Months Immunizations ImmunizationAdministration DatesNext DuePneumococcal conjugate vaccine, 13- valent (PREVNAR 13)2020neumococcal polysaccharide vaccine, 23-valent, age 2 years and older (PNEUMOVAX 23)11/08/2020,09/27/2020Tdap vaccine, age 7 year and older (BOOSTRIX, ADACEL)06/12/2024 Family History Medical HistoryRelationNameCommentsCABGBrotherNo Known ProblemsFatherHeart failureMotherHypertensionMotherRelationNameStatusCommentsBrotherFatherMother Social History Tobacco UseTypesPacks/DayYears UsedDateSmoking Tobacco: FormerCigarettesStarted: 1990Smokeless Tobacco: Never Tobacco Cessation:Counseling Given: Yes Alcohol UseStandard Drinks/WeekCommentsNever0 (1 standard drink = 0.6 oz pure alcohol)CommentsUnknownSex and Gender InformationValueDate RecordedSex Assigned at BirthNot on fileLegal NndQlrsbx15/26/2022 4:42 AM ESTGender Identity Not on fileSexual OrientationNot on file Last Filed Vital Signs Vital SignReadingTime TakenCommentsBlood Yhlwbchh103/8007 10:45 AM EDT Nsstq1457 10:45 AM EDTTemperature--Respiratory Rate--Oxygen Saturation-- Inhaled Oxygen Concentration--Qqwzhf18.1 kg (159 lb)01/23/2025 10:45 AM EDT Zmqinu568.6 cm (5' 6 )01/23/2025 10:45 AM EDTBody Mass Index25.66001/23/2025 10:45 AM EDT Plan of Treatment DateTypeDepartmentCare Team (Latest Contact Info)Bnlmpmjorjm01/19/2026 2:30 PM ESTOffice Visit [facility] [address] [facility] [address] [place] [phone] Kailyn Garcia MD [address] [facility] [address] [place] [address] Health MaintenanceDue DateLast DoneCommentsCT Bkgxoqbeevad99/29/1956FIT-DNA (Cologuard)1955FIT1955Lipid Panel1955Medicare Annual Wellness Visit (AWV)1955 0179Jzheuwoumghpv84/29/1956MMR Vaccines (1 of 1 - Standard series)10/11/1956COVID-19 Vaccine (#1)1Diabetes Bgbznbdwj12/29/1974 Hepatitis C Gefvwjohu95/29/1974Zoster Vaccines (1 of 2)10/11/1974RSV High Risk: (Elderly (60+) or Population) (1 - Risk 60-74 years 1-dose series) 10/12/20159651Muwhghnrg61Bone Density Scan1Colonoscopy Colorectal Cancer Sdemgfupo08/14/2024Influenza Vaccine (#1) 2025DTaP/Tdap/Td Vaccines (2 - Td or Tdap)4Pneumococcal RksuwqxZtmomttgb72/26/2021, 2020, 09/27/2020HIB VaccinesAged OutNo longer eligible based on patient's age to complete this topicHPV VaccinesAged OutNo longer eligible based on patient's age to complete this topicHepatitis A VaccinesAged OutNo longer eligible based on patient's age to complete this topic Hepatitis B VaccinesAged OutNo longer eligible based on patient's age to complete this topicIPV VaccinesAged OutNo longer eligible based on patient's age to complete this topicMeningococcal VaccineAged OutNo longer eligible based on patient's age to complete this topicRotavirus VaccinesAged OutNo longer eligible based on patient's age to complete this topic Insurance Care Teams Team MemberRelationshipSpecialtyStart DateEnd Willy Weber MD [facility] - [facility]
--- OUTSIDE RECORDS SUMMARY | 2025-05-07 09:33 | XMS_ITS | Clinical Summary ---
Author Organization [facility] Address [address] [place] [address] Care Team Providers Care Brainer Name Role Phone Willy Weber MD Primary Care Provider [phone] Willy Weber MD Unavailable [phone] Kailyn Garcia MD Unavailable [phone] Quyen Fong RN Unavailable [phone] Janell Walter OD Unavailable Jean Swartz MD Unavailable Shala Mcclendon NP Unavailable [phone] Allergies No known active allergies Medications MedicationSigDispense QuantityRefillsLast FilledStart DateEnd DateStatus D-MANNOSE PO Take 2 tablets by mouth in the morning.Active cholecalciferol (D3-5) 5,000 Units tablet Take 2 capsules by mouth in the morning.Active acetaminophen (Tylenol) 500 MG tablet Take 500 mg by mouth every 6 (six) hours if needed for moderate pain.Active docusate sodium (Colace) 100 MG capsule Take 100 mg by mouth 2 (two) times a day as needed for constipation.12/22/2022 Active Multiple Vitamin (Daily-Felix Multivitamin) tablet Take 1 tablet by mouth in the morning.12/22/2022ctive [facility] Daily Fiber 58.6 % packet Take 1 packet by mouth if needed.12/22/2022ctive calcium citrate 250 MG tablet Indications:Osteopenia1 tablet 3 times daily as directed.03/18/2024Active Nutritional Supplements (HIGH-PROTEIN NUTRITIONAL SHAKE PO) Take 1 Bottle by mouth in the morning and 1 Bottle before bedtime.Active Menaquinone-7 (Vitamin K2) 100 MCG capsule Take 1 capsule by mouth DailyActive baclofen (Lioresal) 20 MG tablet Indications:Relapsing remitting multiple sclerosisTake 1 tablet (20 mg) by mouth in the morning and 1 tablet (20 mg) in the evening and 1 tablet (20 mg) before bedtime. 270 tablet 4Active aspirin 81 MG EC tablet Take 81 mg by mouth in the morning.5Active montelukast (Singulair) 10 MG tablet Indications:Relapsing remitting multiple sclerosisTake 1 tablet (10 mg) by mouth at bedtime 90 tablet 5Active ocrelizumab (Ocrevus) 300 MG/10ML solution Infuse 300 mg into a venous catheter every 6 (six) monthsActive dsasgthr-qtulbkzqh-drlkytwjzjbfoj (Cortisporin) 3.5-94541-9 otic suspension Indications:Infective Otitis ExternaApply 3 drops to affected ear 3 times daily for 7 days 10 mL 5Active metoprolol succinate XL (Toprol-XL) 25 MG 24 hr tablet 25 mg Daily5Active spironolactone (Aldactone) 25 MG tablet Indications:Venous insufficiencyTake 1 tablet (25 mg) by mouth 2 (two) times a day 180 tablet /6Active gabapentin (Neurontin) 100 MG capsule Indications:Relapsing remitting multiple sclerosisTake 1 capsule (100 mg) by mouth in the morning and 1 capsule (100 mg) at noon and 1 capsule (100 mg) in the evening and 1 capsule (100 mg) before bedtime. 120 capsule 5Active cephalexin (Keflex) 250 MG capsule Indications:Acute cystitis without hematuriaTake 1 capsule (250 mg) by mouth at bedtime 30 capsule 5Active amoxicillin-clavulanate (Augmentin) 875-125 MG tablet Indications:Acute cystitis with hematuria,Multiple sclerosisTake 1 tablet (875 mg) by mouth in the morning and 1 tablet (875 mg) before bedtime. Do all this for 14 days. 28 tablet /Discontinued(Therapy completed) amoxicillin-clavulanate (Augmentin) 875-125 MG tablet Indications:Acute cystitis with hematuriaTake 1 tablet (875 mg) by mouth in the morning and 1 tablet (875 mg) before bedtime. Do all this for 7 days. 14 tablet /03/2025Expired sulfamethoxazole-trimethoprim (Bactrim DS) 800-160 MG per tablet Indications:Acute cystitis without hematuriaTake 1 tablet by mouth in the morning and 1 tablet before bedtime. Do all this for 7 days. 14 tablet /12/2024Discontinued(Other) cephalexin (Keflex) 250 MG capsule Indications:Acute cystitis without hematuriaTake 1 capsule (250 mg) by mouth at bedtime 30 capsule /10/2024Discontinued Active Problems ProblemNoted DateDiagnosed DateNodule of left lung02/24/2025 Overview (02/24/2025): 3mm non-calcified nodule left upper lobe medially Tupjjzbujtbufdbe38/16/2025Immunosuppression due to drug pmutdsr0607/13/2024 Thrombophilia ([facility])05/15/2024ontrolled substance agreement adbrur9301/28/2024 Presence of left hip axwcmae7211/20/2023resence of left artificial shoulder joint 11/20/2023Malaise and woiqfow9511/06/2023Injury of peripheral nerve of pelvis 11/06/2023 Overview (11/06/2023): Peroneal nerve DDD (degenerative disc disease), nhxist4911/06/2023DD (degenerative disc disease), rzoxsaqs59/23/2024 Overview (11/06/2023): Back and neck pain due to underlying DDD. Stable with tolerable discomfort Mononeuritis lower limb11/06/20232577Lkcxb55/23/2024Impaired mobility and activities of daily giwxap5910/30/20238789Gledfjjflfoc01/08/2023ilateral artificial lens implant 12/04/2022enign essential /22/2023hronic pain gtrilgxd01/22/2023 Diastolic caosreorfpd19/22/2023Early stage dry age-related macular degeneration of left eye12/04/2022eneralized muscle ophshhim53/22/2023Hammertoe of right foot12/04/20221244Vxsjvxqcsyl06/22/2023Nonrheumatic mitral valve regurgitation 12/04/20226697Tmttxbenxa87/22/2023Relapsing remitting multiple wvsvxzicz61/22/2023 Atrial fibrillation with controlled ventricular rate12/04/2022Tricompartment osteoarthritis of right knee12/04/2022Urge urinary spcxdvbcuual89/22/2023Uses roller duepcl1912/04/2022Varicose veins of both lower gphqulexhpn51/22/2023Venous isvictwgusglz66/22/2023Venous stasis dermatitis of left lower extremity 12/04/2022Multifocal PVCs with iulyhte6712/04/2022Ventricular fcccsemjh20/22/2023 Vitamin D jaroqahpcv19/22/2023Former dawjxt2901/27/2022es weylwu4910/12/2003 Resolved Problems ProblemNoted DateDiagnosed DateResolved DateNonspecific abnormal results of function study Overview (11/06/2023): Brain and central nervous system Jeabwgdzpee15Disturbance of skin buhnrciah94 Drug-induced pfcmvuazke11 Overview (11/06/2023): Had low absolute lymphocyte counts which initially improved but now have lowered again despite DMT being witheld. Was seen by hematology and was told her lab abnormalities were from medication effect. Most recent labs are stable. 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 [address] Quyen Fong RN 03/30/2025Telephone [facility] [address] [place] [address] Jean Swartz MD 03/23/2025Patient Outreach [facility] [address] [place] [address] Quyen Fong, FRANCISCA 03/23/2025[facility] [address] [place] [address] [facility] [address] Shala Mcclendon NP 03/13/2025Results Follow-Up [place] [address] [place] [address] Willy Weber MD Bilateral diagnostic mammogram with agvsbcsvfxvxp25/25/2025 10:00 AM EDT Ancillary Procedure [facility] [address] [place] [address] Mass of left breast, unspecified jjmtnozr66/25/2025 9:30 AM EDTAncillary Procedure [facility] [place] [facility] [address] [place] [address] Mass of left breast, unspecified idnkgqgx49/25/2025[facility]reach [facility] [address] [place] [address] Quyen Fong, FRANCISCA 03/09/2025Telephone [facility] [place] [address] [place] [address] Willy Weber MD Care Twdpnxzmzcvb29/25/1407Iueniw23/22/2025Telephone [facility] [address] [place] [address] Alicja Noriega MA 02/24/2025Telephone [facility] [place] [facility] [address] [facility] [address] [place] [address] Willy Weber MD 02/16/2025Telephone [facility] [facility] [address] [place] [address] Alicja Noriega MA 02/09/2025Telephone [facility] [place] [facility] [address] [facility] [address] [place] [address] Patricia Haro MA Lab Zwrurm5602/09/2025Telephone [facility] [place] [address] [place] [address] Willy Weber MD 02/09/2025Patient Outreach [facility] [address] [place] [address] Quyen Fong, RN from Last 3 Months Immunizations ImmunizationAdministration DatesNext DuePneumococcal Conjugate PCV 13010/12/2020 Pneumococcal Polysaccharide VZJL2858,09/27/2020Tdap108/12/2023 Family History Medical HistoryRelationNameCommentsCancerBrotherDiabetesBrotherMultiple sclerosisBrotherone brother from [facility] DiabetesMotherHarriet SteinmetzHeart diseaseMotherHarriet SteinmetzHeart failure MotherHarriet SteinmetzHypertensionMotherHarriet SteinmetzHypertensionSibling Kidney cancerSibling1 siblingRelationNameStatusCommentsBrother8 brothersDaughter Alive3 daughtersFatherGilcaro SteinmetzDeceasedMotherHarriet SteinmetzDeceased (Age 94)SiblingAliveSister3 sistersSonAlive1 son Social History Tobacco UseTypesPacks/DayYears UsedDateSmoking Tobacco: YpdmsrHgehkwcmvm458 Smokeless Tobacco: Never Tobacco Cessation:Counseling Given: Yes Alcohol UseStandard Drinks/WeekCommentsNot Currently0 (1 standard drink = 0.6 oz pure alcohol)caffeine intake: 1-2 cups per day qqbqbwI7422 Health LiteracyAnswer Date RecordedHow often do you need to have someone help you when you read instructions, pamphlets, or other written material from your doctor or pharmacy? Never04/01/2024Humiliation, Afraid, Rape, and Kick questionnaireAnswerDate RecordedWithin the last year, have you been afraid of your partner or ex-partner?No12/06/2022Within the last year, have you been humiliated or emotionally abused in other ways by your partner or ex-partner?No12/06/2022 Within the last year, have you been kicked, hit, slapped, or otherwise physically hurt by your partner or ex-partner?No12/06/2022Within the last year, have you been raped or forced to have any kind of sexual activity by your part ner or ex-partner?No12/06/2022Social Connection and Isolation PanelAnswerDate RecordedIn a typical week, how many times do you talk on the phone with family, friends, or neighbors?More than three times a week04/01/2024How often do you get together with friends or relatives?Once a week04/01/2024How often do you attend yarsanism or cheondoism services?More than 4 times per year04/01/2024o you belong to any clubs or organizations such as yarsanism groups, unions, fraternal or athletic groups, or school groups?No04/01/2024How often do you attend meetings of the clubs or organizations you belong to?Never04/01/2024re you , , , , never , or living with a partner? 04/01/2024UDIT-CAnswerDate RecordedQ1: How often do you have a drink containing alcohol?Never04/01/2024Q2: How many drinks containing alcohol do you have on a typical day when you are drinking?Patient does not drink04/01/2024Q3: How often do you have six or more drinks on one occasion?Never04/01/2024Overall Financial Resource Strain (CARDIA)AnswerDate RecordedHow hard is it for you to pay for the very basics like food, housing, medical care, and heating?Somewhat hard 04/01/2024HQ-2AnswerDate RecordedPatient Health Questionnaire-2 Score0 11/25/2024[facility] - Occupational Stress QuestionnaireAnswerDate RecordedDo you feel stress - tense, restless, nervous, or anxious, or unable to sleep at night because yourmind is troubled all the time - these days?Not at all04/01/2024Exercise Vital SignAnswerDate RecordedOn average, how many days per week do you engage in moderate to strenuous exercise (like a brisk walk)?7 days04/01/2024On average, how many minutes do you engage in exercise at this level?30 min04/01/2024Hunger Vital SignAnswerDate Recorded Within the past 12 months, you worried that your food would run out before you got the money to buymore.Never true04/01/2024Within the past 12 months, the food you bought just didn't last and you didn't have money to get more.Never true 04/01/2024RAPARE - TransportationAnswerDate RecordedIn the past 12 months, has lack of transportation kept you from medical appointments or from getting medications?No04/01/2024In the past 12 months, has lack of transportation kept you from meetings, work, or from getting things needed for daily living?No 04/01/2024Housing Stability Vital SignAnswerDate RecordedIn the last 12 months, was there a time when you were not able to pay the mortgage or rent on time?No 12/06/2022In the last 12 months, how many places have you lived?In the last 12 months, was there a time when you did not have a steady place to sleep or slept in ashelter (including now)?No12/06/2022Housing Stability Vital SignAnswerDate RecordedIn the last 12 months, was there a time when you were not able to pay the mortgage or rent on time?No04/01/2024In the past 12 months, how many times have you moved where you were living?t any time in the past 12 months, were you homeless or living in a [place] (including now)?No 04/01/2024CommentsNoSex and Gender InformationValueDate RecordedSex Assigned at MesmpHygqbh62/24/2023 11:38 AM EDTLegal GlsMkwxmg33/15/2023 7:19 PM EDTGender GmuaeryrBcamyu82/24/2023 11:38 AM EDTSexual OrientationStraight 12/06/2022 11:38 AM EDT Last Filed Vital Signs Vital SignReadingTime TakenCommentsBlood Cbqqeawj604/72011/25/2024 9:38 AM EDT Latdb468411/25/2024 9:38 AM OVCYvwwwsreoyu87.7 ??C (98.1 ??F)10/18/2024 10:23 AM EDTRespiratory Rate--Oxygen Wagqhdnvsd53%11/25/2024 9:38 AM EDTInhaled Oxygen Concentration--Pfbjnh81.4 kg (161 lb 12.8 oz)11/27/2024 1:38 PM BMRQzrbbh128.6 cm (5' 6 )11/27/2024 1:38 PM EDTBody Mass Index26.12011/27/2024 1:38 PM EDT Plan of Treatment DateTypeDepartmentCare Team (Latest Contact Info)Lptorsfymgt86/06/2025 1:20 PM ESTOffice Visit [facility] [address] [place] [address] James Mayers DPM [address] [facility] [address] [place] [address] 06/01/2025 9:00 AM ESTOffice Visit [facility] [place] [facility] [address] [facility] [address] [place] [address] Jean Swartz MD [address] [place] [address] [place] [id number] 07/22/2025 11:00 AM ESTTelemedicine [facility] 100 [facility] [address] [facility] 100 [place] [address] Willy Weber MD [address] [address] (Fax) 12/01/2025 10:30 AM EDTOffice Visit [address] [facility] 100 [place] [address] Willy Weber MD [address] [address] (Fax) Health MaintenanceDue DateLast DoneCommentsCT Imzbhuuuljcf93/29/1956FIT-DNA 1955FIT1955FOBT1955 8222Icmlvysmicpac73/29/1956olonoscopy /Pneumococcal Vaccine: 65+ WypsvSxfblbwxz48/26/2021, 2020, 09/27/20206018QljobzvkrRtladxoywycb20/25/2025, 05/15/2018, 05/15/2018, Additional history existsColorectal Cancer ScreeningDiscontinuedInfluenza VaccineDiscontinued Procedures Procedure NamePriorityDate/TimeAssociated DiagnosisCommentsBI US BREAST LIMITED LACFFgumzgj20/25/2025 10:09 AM EDT Mass of left breast, unspecified quadrant BI MAMMOGRAM DIAGNOSTIC TOMOSYNTHESIS ZYKTNDNBHRryijyi43/25/2025 9:45 AM EDT Mass of left breast, unspecified quadrant NQPCRPBMKHLPcdxfer61/14/2014 12:00 PM EDT from Last 3 Months or Most Recently Relevant to Health Maintenance Results * Left breast US limited (03/09/2025 10:09 AM EDT)Anatomical RegionLaterality ModalityBreastLeftUltrasoundSpecimen (Source)Anatomical Location / Laterality Collection Method / VolumeCollection TimeReceived Time03/09/2025 1:10 PM EDT Impressions 03/09/2025 1:19 PM EDT Impression: Left breast ultrasound study demonstrates likely bilobed complex cyst or fibroadenoma at the 2 o'clock position felt to correlate with the asymmetric density on the mammogram study and the nodular density in the left breast on recent CT left shoulder study. Likely small cyst noted as well as described above. No obvious neoplasm. When correlating all studies no convincing evidence of neoplasm. Follow-up diagnostic mammogram study of the left breast with similar views as well as ultrasound study of the left breast with similar views is recommended in 6 months to assess stability. BI-RADS 3 ELECTRONICALLY SIGNED BY: Mil Kim M.D. Narrative 03/09/2025 1:19 PM EDT Examination: BI US BREAST LIMITED LEFT Reason for Study: Density in the left breast on recent CT left shoulder study and diagnostic mammogram study, reevaluation Comparison: CT left shoulder study dated 01/28/2025, diagnostic mammogram study of the breasts dated03/09/2025. Technique: Ultrasound study of the left breast was performed. Images were obtained from the 12:00 to the 3 o'clock position to include area of interest. Findings: At the 2 o'clock position approximately 6 cm from the nipple there is an area of decreased echogenicity with low-level internal echoes measuring 0.7 x 0.5 x 0.5 cm. Closely apposed area of similar decreased echogenicity with internal echoes measuring 0.6 x 0.4 x 0.3 cm. The above likely represents a singular bilobed region measuring approximately 1.2 x 0.7 cm when correlated with mammogram study and likely correlates with the nodular density on the CT left shoulder study. A small unremarkable appearing calcification is noted at this level correlating with benign-appearing calcification on mammogram. Consider complex cyst or fibroadenoma. There is a nearby area of decreased echogenicity other possible would be less likely. No obvious internal vascularity or posterior shadowing. There is a nearby area of decreased echogenicity likely representing a cyst measuring 0.5 x 0.4 x 0.2 cm No obvious solid vascular mass to suggest neoplasm. No obvious abnormal calcifications or vascularity. No obvious ductal dilatation. Authorizing ProviderResult TypeResult StatusEdjung Weber MDIMAdela US PROCEDURES Final Result * Bilateral diagnostic mammogram with tomosynthesis (03/09/2025 9:45 AM EDT) Anatomical RegionLateralityModalityBreastBilateralMammographySpecimen (Source) Anatomical Location / LateralityCollection Method / VolumeCollection Time Received Time03/09/2025 12:50 PM EDT Impressions 03/09/2025 1:10 PM EDT No specific evidence of malignancy seen in either breast. Asymmetric density in the left breast described above likely correlates with the left breast density noted on recent CT left shoulder study. When correlating all studies no convincing evidence of neoplasm. Consider complex cyst or fibroadenoma. Other possibly would be less likely. Follow-up diagnostic mammogram study of the left breast with similar views as well as ultrasound study of the left breast with similar views is recommended in 6 months to assess stability. BIRADS 3 - Probably Benign Findings DENSITY: There are scattered areas of fibroglandular density. FOLLOW-UP: Diagnostic Mammogram in 6 Months, breast ultrasound in 6 months Board Certified Radiologists. ??Accredited by the ACR and FDA. MAMMOGRAPHY IS VERY IMPORTANT TO YOUR HEALTH. ??THE [employer]ET[employer] GUIDELINES RECOMMEND THAT WOMEN 40 YEARS OF AGE AND OLDER SHOULD HAVE A MAMMOGRAM EVERY YEAR. A REMINDER LETTER WILL BE SENT AT THE APPROPRIATE TIME. ?? ELECTRONICALLY SIGNED BY: Mil Kim M.D. Narrative 03/09/2025 1:10 PM EDT EXAMINATION: BI MAMMOGRAM DIAGNOSTIC TOMOSYNTHESIS BILATERAL CLINICAL HISTORY: ??1CM solid appearing nodular structure lateral left breast seen on 01/[address], quadrant not specified TECHNIQUE: Diagnostic digital mammogram study of both breasts was performed with 2D and 3D tomosynthesis imaging. Study was compared to the screening mammogram study of the breasts dated 05/15/2018, CT left shoulder study dated 01/28/2025 and ultrasound study of the left breast dated 03/09/2025. FINDINGS: Standard views of the breasts were obtained as well as coned-down compression views on the left and true lateral view on the left. Suggestion of an approximately 1.2 x 0.7 cm asymmetric density in the upper outer portion of the left breast with associated small coarse benign-appearing calcification in its anterior aspect. Ultrasound demonstrates this to be either a single bilobed area or 2 adjacent areas having overall benign appearance. This finding likely correlates with the density noted on recent CT left shoulder study dated 01/28/2025. Consider complex cyst or fibroadenoma. Other possibly would be less likely. No specific evidence of malignancy. When correlating all studies no convincing evidence of neoplasm. A few benign-appearing calcifications are seen bilaterally. Authorizing ProviderResult TypeResult StatusEdjung Weber MDIMG BI PROCEDURES Final Result * Colonoscopy (01/26/2014 12:00 PM EDT)Anatomical RegionLateralityModality EndoscopySpecimen (Source)Anatomical Location / LateralityCollection Method / VolumeCollection TimeReceived Time01/26/2014 12:00 PM EDT Narrative 01/26/2014 12:00 PM EDT PERFORMED AT [facility] LOCATION:[id number] Abnormal Procedure Note CONVERSION, GENERIC - 11/30/2022 PERFORMED AT [facility] LOCATION:[id number] Abnormal Authorizing ProviderResult TypeResult StatusEdjung Weber MDENDOSCOPY PROCEDURE ORDERABLESFinal Result from Last 3 Months or Most Recently Relevant to Health Maintenance Insurance MemberSubscriberPlan / Payer (Effective 2020-Present)Name:Yonis Dover Member ID:[id number] Relation to Subscriber:SelfName:Yonis Dover Subscriber ID:[id number] Payer ID:STATE Group ID:Not on file Type:Medicare Address: [facility] [place] [phone] Advance Directives TypeDate RecordedPatient RepresentativeExplanationPower of Attorney11/25/2024 10:18 [id number] Power of AttorneyAdvance Directives and Living Will11/25/2024 10:16 [id number] Living Will Care Teams Team MemberRelationshipSpecialtyStart DateEnd Date Willy Weber MD [address] [place] [address] (Fax) PCP - GeneralFamily Medicine11/30/22 Willy Weber MD [address] [place] [address] (Fax) PCP - ACO Reach12/07/22 Kailyn Garcia MD [address] [facility] [place] [address] Referring PhysicianCardiology11/20/23 Quyen Fong, FRANCISCA [address] [place] [address] Registered NurseFamily Medicine12/18/23 Janell Walter OD [address] [place] [address] Referring PhysicianOptometry11/25/24 Jean Swartz MD [address] [place] [address] Referring EsfiaaarsPcdudtmrf83/2/25 Shala Mcclendon NP [address] [place] [address] Nurse IfmlwinurrhvLcpargqdi08/2/25
[2025-05-07 09:51] LABS: Glucose Urine UA NEGATIVE (NEGATIVE)
[2025-05-07 10:03] LABS: Cast Seen? NONE SEEN #/LPF (NONE SEEN); Crystals Seen? None Seen #/HPF (None Seen)
== END 2025-05-07 09:30 | disposition home or self-care (01) ==
LOC: LAB 09:29
PROVIDERS: PCP Family Medicine; Visit Provider Psychiatry & Neurology Neurology
DX: G35.D Multiple sclerosis, unspecified (principal)
CPT/HCPCS: 81001